=== PATIENT | female | born 1930 | race Two or more races ===

== ENCOUNTER 2016-08-22 16:28 | Inpatient (IN) | payer MEDICARE, MEDICAID ==
[~2016-08-22] VITALS: Ht 157.5 cm; Wt 71.2 kg
[~2016-08-22 16:28] MED LIST: ALBU0.633 IH; AMIN30LI2 PO; BISA-79 PO; CARV12.52 PO; CHOL20004 PO; DIFL5DRO OP; FERR1TAB44 PO; FOLI0.8T2 PO; HYDR-4076 PO; Losartan Potassium PO; NA P133E RC; POLY17PO4 PO; SEVE800T PO; WARF6TAB23 PO; [UNRECOGNIZED DRUG - CODE] SQ
[2016-08-22] MEDS ORDERED: MAGNESIUM HYDROXIDE 30 ML UDC PO PRN (19:30)
[2016-08-22] MEDS ORDERED: Z GUARD REMEDY 2 OZ OINT TP PRN (19:30)
[2016-08-22] MEDS ORDERED: ONDANSETRON HCL/PF 4 MG/2 ML VIAL IVP PRN (19:30)
[2016-08-22] MEDS ORDERED: BISACODYL (5 MG) 5 MG TABLET.DR PO PRN (19:30)
[2016-08-22] MEDS ORDERED: LACTULOSE 10 G/15 ML UDC (PYXIS) PO PRN (19:30)
[2016-08-22] MEDS ORDERED: ALBUTEROL SULFATE INH 18 GM HFA.AER.AD IH PRN (19:30)
[2016-08-22 20:00] VITALS: BP 162/84
[2016-08-22] MEDS ORDERED: ERGOCALCIFEROL (VITAMIN D 2) 50,000 UNIT CAPSULE PO SCH (20:00)
[2016-08-22 20:27] LABS: CALCIUM, SERUM 8.2 mg/dL (8.5-10.1); CREATININE 2.9 mg/dL (0.6-1.3); POTASSIUM 3.7 mmol/L (3.5-5.1)
[2016-08-22] MEDS: LOSARTAN POTASSIUM 50 MG TABLET PO SCH (21:00)
[2016-08-22] MEDS: HEPARIN SODIUM, PORCINE 5000 UNITS/1 ML VIAL SQ SCH (21:14)
[2016-08-22] MEDS: LACTULOSE UDC 200 G in SODIUM CHLORIDE IRRIG SOLUTION 400 ML IR SCH (21:27)
[2016-08-23] VITALS (9 sets, daily range): BP systolic 125–199; BP diastolic 66–88
[2016-08-23] MEDS: hydrALAZINE HCL IV 20 MG VIAL IV PRN ×2 (01:08→06:11)
[2016-08-23] MEDS: LACTULOSE UDC 200 G in SODIUM CHLORIDE IRRIG SOLUTION 400 ML IR SCH (02:05)
[2016-08-23] MEDS ORDERED: DEXTROSE 50%-WATER 50 ML DISP.SYRIN IV PRN (05:00)
[2016-08-23] MEDS ORDERED: LACTULOSE 10 G/15 ML UDC (PYXIS) ONE ×2 (05:37)
[2016-08-23] MEDS ORDERED: hydrALAZINE HCL IV 20 MG VIAL ONE (05:37)
[2016-08-23] MEDS: BLOOD SUGAR DIAGNOSTIC 1 EACH STRIP IN SCH ×3 (06:10→17:20)
[2016-08-23] MEDS: LACTULOSE 10 G/15 ML UDC (PYXIS) PO SCH ×3 (06:10→17:20)
[2016-08-23 07:28] LABS: BASOPHILS % (AUTO) 0.2 % (0.0-2.0); DIFF TOTAL % 100 %; EOSINOPHILS % (AUTO) 0.5 % (0.0-6.0); HEMATOCRIT 37 % (33-45); HEMOGLOBIN 12.3 g/dL (11.5-14.8); LYMPHOCYTES # (AUTO) 0.8 /CMM (0.8-4.8); LYMPHOCYTES % (AUTO) 13.9 % (20.0-44.0); MEAN CORPUSCULAR HEMOGLOBIN 32 PG (26.0-33.0); MEAN CORPUSCULAR HGB CONC 34 g/dl (31.0-36.0); MEAN CORPUSCULAR VOLUME 94 fL (82-100); MONOCYTES # (AUTO) 0.6 /CMM (0.1-1.30); MONOCYTES % (AUTO) 9.5 % (2.0-12.0); NEUTROPHILS # (AUTO) 4.6 /CMM (1.8-8.9); NEUTROPHILS % (AUTO) 75.9 % (43.0-81.0); PLATELET COUNT (AUTO) 98 /CMM (150-450); RED BLOOD CELL COUNT(AUTO) 3.91 MIL/uL (4.0-5.2); WHITE BLOOD COUNT (AUTO) 6.1 K/uL (4.3-11.0)
[2016-08-23 07:40] LABS: INR 1.84 (0.87-1.13)
[2016-08-23] MEDS: PANTOPRAZOLE 40 MG VIAL IV SCH (08:32)
[2016-08-23] MEDS: hydrALAZINE HCL 25 MG TABLET PO SCH ×3 (08:34→17:22)
[2016-08-23] MEDS: LOSARTAN POTASSIUM 50 MG TABLET PO SCH ×2 (08:34→21:37)
[2016-08-23] MEDS: CARVEDILOL 12.5 MG TABLET PO SCH ×2 (08:34→17:21)
[2016-08-23] MEDS: PROSOURCE / PROSTAT (PYXIS) 30 ML UDC PO SCH ×3 (08:35→17:21)
[2016-08-23] MEDS: VIT B CMPLX 3/FA/VIT C/BIOTIN 1 TAB TABLET PO SCH (08:35)
[2016-08-23] MEDS: FERROUS SULFATE (325 MG) 325 MG/TAB TABLET PO SCH ×3 (08:35→17:20)
[2016-08-23] MEDS: SEVELAMER CARBONATE 800 MG TABLET PO SCH ×3 (08:36→17:21)
[2016-08-23] MEDS: HEPARIN SODIUM, PORCINE 5000 UNITS/1 ML VIAL SQ SCH ×2 (08:36→21:00)
[2016-08-23] MEDS ORDERED: DIFLUPREDNATE EYE OP SCH (09:00)
[2016-08-23] MEDS ORDERED: NITROGLYCERIN 30 GM TUBE TOP PRN (10:00)
[2016-08-23 10:12] LABS: POTASSIUM 3.3 mmol/L (3.5-5.1)
[2016-08-23 10:13] LABS: CALCIUM, SERUM 8.6 mg/dL (8.5-10.1); CREATININE 3.5 mg/dL (0.6-1.3)
[2016-08-23 10:14] LABS: BILIRUBIN,TOTAL 0.8 mg/dL (0.2-1.0); PHOSPHORUS 3.6 mg/dL (2.5-4.9)
[2016-08-23 10:15] LABS: TOTAL PROTEIN, SERUM 6.6 g/dL (6.4-8.2)
[2016-08-23] MEDS: INSULIN REGULAR, HUMAN 100 UNIT/ML 3 ML VIAL SQ PRN ×2 (12:27→17:22)
[2016-08-23 13:27] LABS: BAND % (MANUAL) 1 % (0.0-5.0); EOSINOPHILS % (MANUAL) 4 % (0-4); LYMPHOCYTES % (MANUAL) 15 % (16-48)
[2016-08-23 13:28] LABS: PLATELET ESTIMATE DECREASED
[2016-08-23] MEDS: RIFAXIMIN 550 MG TABLET PO SCH (17:21)
[2016-08-24] VITALS (7 sets, daily range): BP systolic 153–192; BP diastolic 64–91
[2016-08-24] MEDS: LACTULOSE 10 G/15 ML UDC (PYXIS) PO SCH ×3 (01:44→17:14)
[2016-08-24] MEDS: BLOOD SUGAR DIAGNOSTIC 1 EACH STRIP IN SCH ×5 (05:55→23:44)
[2016-08-24] MEDS ORDERED: LACTULOSE 10 G/15 ML UDC (PYXIS) ONE (05:58)
[2016-08-24 07:19] LABS: BASOPHILS % (AUTO) 0.1 % (0.0-2.0); DIFF TOTAL % 100 %; EOSINOPHILS % (AUTO) 1.1 % (0.0-6.0); HEMATOCRIT 34 % (33-45); HEMOGLOBIN 11.3 g/dL (11.5-14.8); LYMPHOCYTES # (AUTO) 0.8 /CMM (0.8-4.8); LYMPHOCYTES % (AUTO) 21.2 % (20.0-44.0); MEAN CORPUSCULAR HEMOGLOBIN 32 PG (26.0-33.0); MEAN CORPUSCULAR HGB CONC 34 g/dl (31.0-36.0); MEAN CORPUSCULAR VOLUME 95 fL (82-100); MONOCYTES # (AUTO) 0.5 /CMM (0.1-1.30); NEUTROPHILS # (AUTO) 2.6 /CMM (1.8-8.9); NEUTROPHILS % (AUTO) 65.6 % (43.0-81.0); PLATELET COUNT (AUTO) 80 /CMM (150-450); RED BLOOD CELL COUNT(AUTO) 3.56 MIL/uL (4.0-5.2); WHITE BLOOD COUNT (AUTO) 3.9 K/uL (4.3-11.0)
[2016-08-24 07:20] LABS: INR 1.88 (0.87-1.13); PROTHROMBIN TIME 20.4 SECS (9.5-12.7)
[2016-08-24 07:57] LABS: ALBUMIN 2.9 g/dL (3.4-5.0); BILIRUBIN,TOTAL 0.6 mg/dL (0.2-1.0); CALCIUM, SERUM 8.2 mg/dL (8.5-10.1); CREATININE 4.2 mg/dL (0.6-1.3); POTASSIUM 3.2 mmol/L (3.5-5.1); TOTAL PROTEIN, SERUM 6.2 g/dL (6.4-8.2)
[2016-08-24] MEDS: PANTOPRAZOLE 40 MG VIAL IV SCH (08:31)
[2016-08-24] MEDS: RIFAXIMIN 550 MG TABLET PO SCH ×2 (08:31→17:14)
[2016-08-24] MEDS: PROSOURCE / PROSTAT (PYXIS) 30 ML UDC PO SCH ×3 (08:31→17:14)
[2016-08-24] MEDS: SEVELAMER CARBONATE 800 MG TABLET PO SCH ×3 (08:31→17:16)
[2016-08-24] MEDS: CARVEDILOL 12.5 MG TABLET PO SCH ×2 (08:32→17:16)
[2016-08-24] MEDS: hydrALAZINE HCL 25 MG TABLET PO SCH ×3 (08:32→17:16)
[2016-08-24] MEDS: FERROUS SULFATE (325 MG) 325 MG/TAB TABLET PO SCH ×3 (08:32→17:14)
[2016-08-24] MEDS: VIT B CMPLX 3/FA/VIT C/BIOTIN 1 TAB TABLET PO SCH (08:32)
[2016-08-24] MEDS: LOSARTAN POTASSIUM 50 MG TABLET PO SCH ×2 (08:32→21:45)
[2016-08-24] MEDS: HEPARIN SODIUM, PORCINE 5000 UNITS/1 ML VIAL SQ SCH (08:33)
[2016-08-24 09:25] LABS: BAND % (MANUAL) 2 % (0.0-5.0); LYMPHOCYTES % (MANUAL) 20 % (16-48)
[2016-08-24 09:26] LABS: PLATELET ESTIMATE DECREASED
[2016-08-24] MEDS ORDERED: POTASSIUM CHLORIDE 20 MEQ TAB.PRT.SR PO ONE (12:00)
[2016-08-24] MEDS ORDERED: POTASSIUM CHLORIDE 20 MEQ POWDER PACKET GT ONE (13:00)
[2016-08-24] MEDS ORDERED: hydrALAZINE HCL 25 MG TABLET PO SCH (15:30)
[2016-08-24 19:18] LABS: APPEARANCE,UNSPUN,BODY FLUID HAZY (CLEAR); COLOR,BODY FLUID YELLOW (LT YELLOW); RBC, BODY FLUID 13000 /cu. mm. (0-2000); WBC, BODY FLUID 220 /cu. mm. (0-200)
[2016-08-24 19:22] LABS: GLUCOSE,BODY FLUID 131 mg/dL; LDH, BODY FLUID 121 U/L; PROTEIN, BODY FLUID 2.8 G/DL
[2016-08-24 19:34] LABS: POLYNUCLEAR, BODY FLUID 20 % (0-25)
[2016-08-24] MEDS ORDERED: ACETAMINOPHEN 325 MG TABLET ONE (23:23)
[2016-08-24] MEDS ORDERED: hydrALAZINE HCL 50 MG TABLET ONE (23:23)
[2016-08-24] MEDS ORDERED: hydrALAZINE HCL 50 MG TABLET PO PRN (23:30)
[2016-08-24] MEDS: ACETAMINOPHEN 325 MG TABLET PO PRN (23:36)
[2016-08-24] MEDS: INSULIN REGULAR, HUMAN 100 UNIT/ML 3 ML VIAL SQ PRN (23:48)
[2016-08-25] VITALS (8 sets, daily range): BP systolic 126–189; BP diastolic 58–72
[2016-08-25] MEDS: LACTULOSE 10 G/15 ML UDC (PYXIS) PO SCH ×2 (05:02→17:11)
[2016-08-25] MEDS: BLOOD SUGAR DIAGNOSTIC 1 EACH STRIP IN SCH ×4 (06:09→23:22)
[2016-08-25] MEDS: INSULIN REGULAR, HUMAN 100 UNIT/ML 3 ML VIAL SQ PRN ×3 (06:10→23:24)
[2016-08-25] MEDS: hydrALAZINE HCL 25 MG TABLET PO SCH ×3 (08:37→17:13)
[2016-08-25] MEDS: VIT B CMPLX 3/FA/VIT C/BIOTIN 1 TAB TABLET PO SCH (08:37)
[2016-08-25] MEDS: FERROUS SULFATE (325 MG) 325 MG/TAB TABLET PO SCH ×3 (08:37→17:12)
[2016-08-25] MEDS: RIFAXIMIN 550 MG TABLET PO SCH ×2 (08:37→17:12)
[2016-08-25] MEDS: PANTOPRAZOLE 40 MG VIAL IV SCH (08:37)
[2016-08-25] MEDS: PROSOURCE / PROSTAT (PYXIS) 30 ML UDC PO SCH ×3 (08:37→17:11)
[2016-08-25] MEDS: SEVELAMER CARBONATE 800 MG TABLET PO SCH ×3 (08:37→17:12)
[2016-08-25] MEDS: CARVEDILOL 12.5 MG TABLET PO SCH ×2 (08:38→17:12)
[2016-08-25] MEDS: LOSARTAN POTASSIUM 50 MG TABLET PO SCH ×2 (08:38→20:56)
[2016-08-25] MEDS ORDERED: ERGOCALCIFEROL (VITAMIN D 2) 50,000 UNIT CAPSULE PO SCH (09:00)
[2016-08-25] MEDS: ACETAMINOPHEN 325 MG TABLET PO PRN (20:56)
[2016-08-26] VITALS: BP 139/59
== END 2016-08-26 04:41 | DRG 441 ==
LOC: TELE 18:38 → TELE-TD 08-23 01:05 → TELE1 08-23 10:22
PROVIDERS: ADMIT Internal Medicine; ATTEND Internal Medicine
PROC: 5A1D00Z (ICD-10-PCS; principal; 2016-08-24)
PROC: 0W993ZZ Drainage of Right Pleural Cavity, Percutaneous Approach (ICD-10-PCS; 2016-08-24)
DX: K72.00 Acute and subacute hepatic failure without coma (principal); N18.6 End stage renal disease; J96.00 Acute respiratory failure, unspecified whether with hypoxia or hypercapnia; I50.32 Chronic diastolic (congestive) heart failure; D61.818 Other pancytopenia; I13.2 Hypertensive heart and chronic kidney disease with heart failure and with stage 5 chronic kidney disease, or end stage renal disease; K74.60 Unspecified cirrhosis of liver; E11.22 Type 2 diabetes mellitus with diabetic chronic kidney disease; Z99.2 Dependence on renal dialysis; E78.5 Hyperlipidemia, unspecified; Z86.711 Personal history of pulmonary embolism; D63.8 Anemia in other chronic diseases classified elsewhere; E87.6 Hypokalemia
CPT/HCPCS: 36415; 71010-TC; 76700-TC; 76942-TC; 80048-TC; 80053-TC; 80061-TC; 82140-TC; 82962-TC; 83615-TC; 83735-TC; 84100-TC; 84484-TC; 85025-TC; 85610-TC; 87040-TC; 87070-TC; 87081-TC; 88305-TC; 88312-TC; 89051-TC; 90935-TC; 92521; 94799-TC; A4217; C9113; J0360; J1644; J1815

== ENCOUNTER 2017-05-10 06:07 | Inpatient (IN) | payer MEDICARE, MEDICAID ==
[2017-05-10] VITALS (11 sets, daily range): BP systolic 139–208; BP diastolic 45–86
[~2017-05-10] VITALS: Ht 167.6 cm; Wt 72.1 kg
--- NOTE | 2017-05-10 06:10 | NUR ---
PT ALTERED FROM [facility], PT WAS PLACED ON A NON REBREATHER DUTY OFFICER BY EMS, PER EMS PT HAS BEEN ALTERED X 15 HOURS, PT IS USUALY NON VERBAL BUT CAN NON HER HEAD YES OR NO, PT IS NOT RESPONDING TO QUESTIONS OR OPENING HER EYES AT THIS TIME, IV PLACED DUTY OFFICER, PT ON MONITOR, MD IN ROOM, PT IN GOWN, WILL CONTINUE TO MONITOR.
--- NOTE | 2017-05-10 06:24 | NUR ---
FLOOR RENOVATOR IN ROOM FOR EKG
--- NOTE | 2017-05-10 06:34 | NUR ---
LAB IN ROOM TO DRAW
--- NOTE | 2017-05-10 06:51 | NUR ---
IN AND OUT CATH DONE AND URINE SENT TO LAB
[2017-05-10 07:00] LABS: BASOPHILS % (AUTO) 0.3 % (0.0-2.0); EOSINOPHILS % (AUTO) 0.2 % (0.0-6.0); HEMATOCRIT 40 % (33-45); HEMOGLOBIN 13.5 g/dL (11.5-14.8); LYMPHOCYTES # (AUTO) 2.3 /CMM (0.8-4.8); LYMPHOCYTES % (AUTO) 12.7 % (20.0-44.0); MEAN CORPUSCULAR HEMOGLOBIN 33 PG (26.0-33.0); MEAN CORPUSCULAR HGB CONC 34 g/dl (31.0-36.0); MEAN CORPUSCULAR VOLUME 97 fL (82-100); MONOCYTES % (AUTO) 5.7 % (2.0-12.0); NEUTROPHILS # (AUTO) 14.5 /CMM (1.8-8.9); NEUTROPHILS % (AUTO) 81.1 % (43.0-81.0); PLATELET COUNT (AUTO) 125 /CMM (150-450); RDW COEFFICIENT OF VARIATION 13.4 (11.5-15.0); RED BLOOD CELL COUNT(AUTO) 4.15 MIL/uL (4.0-5.2); WHITE BLOOD COUNT (AUTO) 17.9 K/uL (4.3-11.0)
[2017-05-10 07:04] LABS: APPEARANCE,URINE CLOUDY (CLEAR); BILIRUBIN,URINE NEGATIVE (NEGATIVE); BLOOD, URINE TRACE-INTA Ery/uL (NEGATIVE); COLOR,URINE YELLOW (YELLOW); KETONES,URINE NEGATIVE (NEGATIVE); LEUKOCYTE ESTERASE ,URINE 3+ (NEGATIVE); NITRITE, URINE NEGATIVE (NEGATIVE); PROTEIN,URINE 2+ mg/dl (NEGATIVE); UGLUCOSE NEGATIVE (NEGATIVE); UROBILINOGEN,URINE 0.2 EU/dL (0.2)
[2017-05-10 07:07] LABS: ABG BASE EXCESS -1.3 mmol/L; ABG OXYGEN SATURATION 98.3 % (92.0-98.5); ABG PH 7.531 (7.350-7.450); ABG PO2 452.4 mmHg (75.0-100.0); AaDO2 92.8 mmHg; COHb 0.6 % (0.5-1.5); MetHb 0.3 % (0.0-1.5); O2Hb 97.4 % (94.0-97.0); SITE, ABG Right Radial; VENT MODE, BG NRB
[2017-05-10 07:08] LABS: BACTERIA,URINE 3+ /HPF (None Seen); MUCUS,URINE Few /LPF (None Seen); URINE AMORPHOUS URATE Few /HPF (None Seen); WBC,URINE 51-80 /HPF (0-3)
[2017-05-10 07:10] LABS: CARBON DIOXIDE 20 mmol/L (21-32); CHLORIDE 102 mmol/L (98-107); CREATININE 6.1 mg/dL (0.6-1.3); GLUCOSE 144 mg/dL (74-106); POTASSIUM 4.6 mmol/L (3.5-5.1); SODIUM SERUM 138 mmol/L (136-145); UREA NITROGEN, BLOOD 47 mg/dL (7-18)
[2017-05-10 07:15] LABS: INR 1.05 (0.87-1.13); PROTHROMBIN TIME 10.9 SECS (9.5-12.7)
[2017-05-10 07:18] LABS: TROPONIN I 0.022 ng/mL (0.00-0.056)
[2017-05-10 07:25] LABS: ALANINE AMINOTRANSFERASE 23 U/L (12-78); ALBUMIN 3.4 g/dL (3.4-5.0); ALKALINE PHOSPHATASE 72 U/L (46-116); ASPARTATE AMINOTRANSFERASE 33 U/L (15-37); BILIRUBIN,DIRECT 0.3 mg/dL (0.0-0.2); BILIRUBIN,TOTAL 1.2 mg/dL (0.2-1.0); TOTAL PROTEIN, SERUM 7.3 g/dL (6.4-8.2)
[2017-05-10] MEDS ORDERED: LOSA50TA21 PO (07:40)
[2017-05-10] MEDS ORDERED: INSU100V11 SQ (07:40)
[2017-05-10] MEDS ORDERED: DIPH25CA6 PO (07:40)
[2017-05-10] MEDS ORDERED: MAG30ORA PO (07:40)
[2017-05-10] MEDS ORDERED: ACET-868 PO (07:40)
[2017-05-10] MEDS ORDERED: VITA1TAB56 PO (07:40)
[2017-05-10] MEDS ORDERED: ALBU18HF2 IH (07:40)
[2017-05-10] MEDS ORDERED: INSU100V7 SQ (07:40)
[2017-05-10] MEDS ORDERED: BISA10SU8 RC (07:40)
[2017-05-10] MEDS ORDERED: NA P133E RC (07:40)
[2017-05-10] MEDS ORDERED: MAGN400O6 PO (07:40)
[2017-05-10] MEDS ORDERED: HYDR-552 PO (07:40)
[2017-05-10] MEDS ORDERED: CARV6.252 PO (07:40)
[2017-05-10] MEDS ORDERED: DEXA4TAB PO (07:40)
[2017-05-10] MEDS ORDERED: NIFE30TA91 PO (07:40)
[2017-05-10] MEDS ORDERED: BLOO-668 IN (07:40)
[2017-05-10] MEDS ORDERED: PANT40TA2 PO (07:40)
[2017-05-10] MEDS ORDERED: LEVE250T2 PO (07:40)
[2017-05-10] MEDS ORDERED: ATOR40TA PO (07:40)
[2017-05-10] MEDS ORDERED: CEFTRIAXONE 1GM BAG (ER ONLY) 50 ML IV ONE ×2 (08:23→08:30)
[2017-05-10] MEDS ORDERED: IV NS 0.9% 1,000 ML BAG IV ONE (08:30)
[2017-05-10] MEDS ORDERED: ENALAPRILAT DIHYD. (2.5MG/ML) 1.25 MG/ML VIAL IV ONE (08:46)
--- NOTE | 2017-05-10 08:46 | NUR ---
Report called to RASHMI Carias for continuity of care
[2017-05-10] MEDS ORDERED: MAGNESIUM HYDROXIDE 30 ML UDC PO PRN (09:00)
[2017-05-10] MEDS ORDERED: ENOXAPARIN SODIUM 40 MG/0.4 ML DISP.SYRIN SQ SCH (09:00)
[2017-05-10] MEDS ORDERED: VANCOMYCIN 1.25 GM in IV D5W 500 ML IV SCH (09:00)
[2017-05-10] MEDS: CARVEDILOL 6.25 MG TABLET PO SCH ×2 (09:00→17:48)
[2017-05-10] MEDS ORDERED: ONDANSETRON HCL/PF 4 MG/2 ML VIAL IVP PRN (09:00)
[2017-05-10] MEDS: NIFEdipine XL (30MG) 30 MG TAB PO SCH ×2 (09:00→20:39)
[2017-05-10] MEDS ORDERED: Z GUARD REMEDY 2 OZ OINT TP PRN (09:00)
[2017-05-10] MEDS ORDERED: ALBUTEROL FS 2.5 MG/3 ML VIAL.NEB NEB PRN (09:00)
[2017-05-10] MEDS ORDERED: IV NS 0.9% 1,000 ML IV PRN (09:00)
[2017-05-10] MEDS ORDERED: MAG HYDROX/AL HYDROX/SIMETH 30 ML UDC PO PRN (09:00)
[2017-05-10] MEDS ORDERED: PIPERACILLIN /TAZOBACTAM 4.5 G in IV D5W 50 ML IV SCH (09:00)
[2017-05-10] MEDS ORDERED: ALBUTEROL SULFATE 8 GM HFA.AER.AD IH PRN (09:00)
[2017-05-10] MEDS ORDERED: BISACODYL SUPP (10 MG) 10 MG/SUPP.RECT SUPP.RECT RC PRN (09:00)
--- NOTE | 2017-05-10 09:00 | NUR ---
RN NOTES RECEIVED PATIENT FROM ER ,ADMITTED WITH DIAGNOSIS OF AMS , RESPONSIVE TO PAIN STIMULI , SPO2 OF 98% VIA SIMPLE MASK @ 6LPM , DEEP RESPIRATIONS NOTED WITH RALES UPON AUSCULTATION , SR 85 ON TELE MONITOR , SKIN ASSESSMENT DONE NOTED WITH SACRAL AND BILATERAL INGUINAL REDNESS , TOOK A PICTURE AND PLACED IN THE CHART , IV OF L HAND # 20 PATENT AND INTACT WITH ONGOING NS BOLUS , R CHEST WALL HD CATH C/D/I , ALL NEEDS ATTENDED , BED ON LOW AND LOCKED POSITION ,SIDE RAILS X2 ,CALL LIGHT WITHIN REACH , HOB @ 35 , ADMISSION ORDERS CARRIED OUT , WILL CONTINUE TO MONITOR
[2017-05-10] MEDS ORDERED: FEE PK DOSING 1 MIN EA MC ONE (09:24)
[2017-05-10] MEDS: hydrALAZINE HCL IV 20 MG VIAL IV PRN ×2 (09:37→17:47)
[2017-05-10] MEDS: PIPERACILLIN /TAZOBACTAM 2.25 G in IV D5W 50 ML IV SCH ×2 (10:12→17:48)
[2017-05-10] MEDS: LEVETIRACETAM (500MG) 500 MG in IV NS 0.9% 100 ML IV SCH ×2 (10:13→20:39)
[2017-05-10] MEDS: HEPARIN SODIUM, PORCINE 5000 UNITS/1 ML VIAL SQ SCH ×2 (10:23→20:40)
[2017-05-10] MEDS ORDERED: VANCOMYCIN 1.25 GM in IV D5W 500 ML IV ONE (11:00)
--- NOTE | 2017-05-10 11:35 | NUR ---
RN NOTES SPOKE WITH DR SYKES , DISCUSSED LABS , PT STILL ALTERED RESPONSIVE TO PAIN STIMULI , NOTED WITH CONGESTION , RALES UPON AUSCULTATION ON BOTH LUNG [place] , DEEP SUCTION PT NOTED WITH WHITE THICK SECRETION , VERIFIED IF SHE WANTS TO ADD BREATHING TX , PER MD ORDER ALBUTEROL PRN , BP OF 170'S , PER MD GIVE HYDRALAZINE 10MG X1 IVP AND PUT NGT FOR MEDICATIONS , ORDERS CARRIED OUT
[2017-05-10] MEDS ORDERED: ALBUTEROL FS 2.5 MG/0.5 ML VIAL.NEB NEB PRN (12:00)
[2017-05-10] MEDS ORDERED: hydrALAZINE HCL IV 20 MG VIAL IV ONE (12:00)
[2017-05-10] MEDS ORDERED: SEVELAMER CARBONATE 800 MG TABLET PO SCH (13:00)
--- NOTE | 2017-05-10 13:54 | NUR ---
RN NOTES PT STABLE PRIOR TO HD , BP OF 153/85 , AFEBRILE , SPO2 OF 98% VIA 6LPM MASK , STILL ALTERED MENTAL STATUS RESPONSIVE TO PAIN STIMULI , WILL CONTINUE TO MONITOR
--- NOTE | 2017-05-10 15:48 | NUR ---
RN NOTES PT STILL WITH AMS S/P HD , 2.5 L OUT TOLERATED WELL , BP OF 136/77 , HR 82 , ON 6LPM MASK SPO2 OF 98 , WILL CONTINUE TO MONITOR
--- NOTE | 2017-05-10 16:07 | NUR ---
RN NOTES NOTIFIED DR SYKES THAT PT STILL WITH AMS S/P HD , BS OF 164 , DISCUSSED BASELINE ABG , ASKED IF SHE WANTS TO DO ANOTHER ABG , PER MD NO ABG , PT NOTED WITH CONGESTION , PER MD OK TO DEEP SUCTIONING , AND ORDER PULMO CONSULT .
--- NOTE | 2017-05-10 16:18 | NUR ---
RN NOTES CALLED PHARMACY , SPOKE WITH NASIR , NOTIFIED THAT VANCOMYCIN DOSE WAS GIVEN SCHEDULED PRIOR TO HD , PER NASIR HOLD THE DOSE OF VANCOMYCIN POST HD
[2017-05-10] MEDS ORDERED: DEXTROSE 50%-WATER 50 ML DISP.SYRIN IV PRN (16:30)
[2017-05-10] MEDS: SEVELAMER CARBONATE 0.8 GM POWD.PACK GT SCH (17:47)
[2017-05-10] MEDS: BLOOD SUGAR DIAGNOSTIC 1 EACH STRIP IN SCH ×2 (17:54→23:43)
[2017-05-10] MEDS: INSULIN REGULAR, HUMAN 100 UNIT/ML 3 ML VIAL SQ PRN (18:00)
[2017-05-10] MEDS: IV NS 0.9% 1,000 ML IV PRN (18:10)
--- NOTE | 2017-05-10 19:01 | NUR ---
RN NOTES PATIENT STABLE AT THIS TIME STILL WITH AMS RESPONSIVE TO PAIN STIMULI , SPO2 OF 98% VIA SIMPLE MASK @ 6LPM , , SR 75 ON TELE MONITOR , IV OF L HAND # 20 PATENT AND INTACT , R HAND # 20 WITH ONGOING NS @ 40ML/HR , R CHEST WALL HD CATH C/D/I , ALL NEEDS ATTENDED , BED ON LOW AND LOCKED POSITION ,SIDE RAILS X2 ,CALL LIGHT WITHIN REACH , HOB @ 35 , REPROT GIVEN TO SUJIT CARABALLO FOR CONTINUITY OF CARE
--- NOTE | 2017-05-10 20:29 | NUR ---
received pt from day shift, altered, lethargic, responds to pain stimuli only MD aware, SR, on 6L simple mask, sat well, lungs congested, no edema, able to suction some secretions, respiratory notified, NPO, anuric, HD pt, HD done today, v/s stable, no pain, pt turned and repositioned.
[2017-05-10] MEDS: ATORVASTATIN 40 MG TABLET PO SCH (21:02)
[2017-05-11] VITALS: BP 147/72
[2017-05-11] MEDS: PIPERACILLIN /TAZOBACTAM 2.25 G in IV D5W 50 ML IV SCH ×3 (01:10→17:24)
[2017-05-11 04:00] VITALS: BP 168/80
[2017-05-11] MEDS: BLOOD SUGAR DIAGNOSTIC 1 EACH STRIP IN SCH ×3 (06:00→17:24)
--- NOTE | 2017-05-11 07:30 | NUR ---
INSURANCE COMPLIANCE ANALYST RECEIVED PATIENT ASLEEP, BASELINE ORIENTATION IS LETHARGIC RIGHT NOW, UNABLE TO CHECK HER ORIENTATION MOVES TO PAIN PLACED ON 6 LITERS SIMPLE MASK MOANS WHEN MOVES SEEN AND EXAMINED BY WOUND CARE NURSE WITH NEW ORDERS MADE AND CARRIED OUT BLOOD SUGAR FOR 0600 GIVEN BY NEWSPERSON NURSE
[2017-05-11 08:00] VITALS: BP 147/62
[2017-05-11] MEDS: CARVEDILOL 6.25 MG TABLET PO SCH ×2 (09:49→17:25)
[2017-05-11] MEDS: NIFEdipine XL (30MG) 30 MG TAB PO SCH ×2 (09:49→20:58)
[2017-05-11] MEDS: SEVELAMER CARBONATE 0.8 GM POWD.PACK GT SCH ×3 (09:49→17:24)
[2017-05-11] MEDS: HEPARIN SODIUM, PORCINE 5000 UNITS/1 ML VIAL SQ SCH ×2 (09:50→21:00)
[2017-05-11 10:34] LABS: CHOLESTEROL 140 mg/dL (<200); HDL CHOLESTEROL 66 mg/dL (40-60); LDL 52 mg/dL (0-99); TRIGLYCERIDES 80 mg/dL (30-150)
[2017-05-11 10:35] LABS: CALCIUM, SERUM 8.5 mg/dL (8.5-10.1); CARBON DIOXIDE 21 mmol/L (21-32); CHLORIDE 101 mmol/L (98-107); CREATININE 4.9 mg/dL (0.6-1.3); GLUCOSE 152 mg/dL (74-106); MAGNESIUM 1.9 mg/dL (1.8-2.4); PHOSPHORUS 3.5 mg/dL (2.5-4.9); POTASSIUM 4.1 mmol/L (3.5-5.1); SODIUM SERUM 137 mmol/L (136-145); UREA NITROGEN, BLOOD 40 mg/dL (7-18); VANCOMYCIN,RANDOM 15 ug/ml (18-26)
[2017-05-11] MEDS: LEVETIRACETAM (500MG) 500 MG in IV NS 0.9% 100 ML IV SCH ×2 (10:51→21:33)
[2017-05-11 11:29] LABS: BASOPHILS % (AUTO) 0.1 % (0.0-2.0); EOSINOPHILS % (AUTO) 0.2 % (0.0-6.0); HEMATOCRIT 38 % (33-45); HEMOGLOBIN 12.6 g/dL (11.5-14.8); LYMPHOCYTES # (AUTO) 1.3 /CMM (0.8-4.8); LYMPHOCYTES % (AUTO) 11.3 % (20.0-44.0); MEAN CORPUSCULAR HEMOGLOBIN 32 PG (26.0-33.0); MEAN CORPUSCULAR HGB CONC 33 g/dl (31.0-36.0); MEAN CORPUSCULAR VOLUME 97 fL (82-100); MONOCYTES # (AUTO) 0.7 /CMM (0.1-1.30); MONOCYTES % (AUTO) 5.6 % (2.0-12.0); NEUTROPHILS # (AUTO) 9.9 /CMM (1.8-8.9); NEUTROPHILS % (AUTO) 82.8 % (43.0-81.0); PLATELET COUNT (AUTO) 93 /CMM (150-450); RDW COEFFICIENT OF VARIATION 13.3 (11.5-15.0); RED BLOOD CELL COUNT(AUTO) 3.91 MIL/uL (4.0-5.2); WHITE BLOOD COUNT (AUTO) 11.9 K/uL (4.3-11.0)
[2017-05-11 12:00] VITALS: BP 127/63
[2017-05-11] MEDS: INSULIN REGULAR, HUMAN 100 UNIT/ML 3 ML VIAL SQ PRN (12:45)
[2017-05-11 13:14] LABS: BAND % (MANUAL) 1 % (0.0-5.0); LYMPHOCYTES % (MANUAL) 11 % (16-48); MONOCYTES % (MANUAL) 2 % (0-11.0); NEUTROPHILS % (MANUAL) 86 (42-76)
--- NOTE | 2017-05-11 15:50 | NUR ---
POULTRY FARMWORKER GAVE REPORT TO BRIAN CARABALLO ENDORSED TO NOD
[2017-05-11 16:00] VITALS: BP 168/80
[2017-05-11] MEDS: CLOTRIMAZOLE 1% 15 GM TUBE TP SCH (17:25)
[2017-05-11] MEDS: Z GUARD REMEDY 2 OZ OINT TP SCH (17:25)
[2017-05-11] MEDS: ACETAMINOPHEN 325 MG TABLET PO PRN (17:41)
[2017-05-11] MEDS: VANCOMYCIN 500 MG in IV D5W 100 ML IV PRN (18:51)
[2017-05-11 20:00] VITALS: BP 150/69
--- NOTE | 2017-05-11 20:00 | NUR ---
dylan rn notes received pts on bed awake and responsive , on tele sr on the monitor. sating 99% pts on 6liters of 02 via mask, temp of 100.9 cooling measures and sponge bath given , no sob no distress noted no facial grimaces noted.with left and right hand both g#20 intact and patent , pts is on ivf of ns at 40cc/hr well tolerated , pts also with ngt intact and patent placement checked ,all needs attended too call light within reach all due meds given as ordered , hob elevated for aspiration precaution , turned and reposition q 2hrs and prn .kept pts clean dry and comfortable, will continue to monitor pts.
--- NOTE | 2017-05-11 20:34 | NUR ---
Patient resides at [facility] [phone],primary language is Hebrew. She is bedbound, totally dependent with adl's. She gets hemodialysis at [facility] [phone] every TTHS. She will need ambulance for transportation back to [facility] when discharge. Addendum: 05/11/17 at 2033 by MARY JEFFERS RN Amended: Links added.
[2017-05-11] MEDS: MEROPENEM 500 MG in IV NS 0.9% 50 ML IV SCH (20:56)
--- NOTE | 2017-05-11 21:00 | NUR ---
dylan rn notes recheck temperature t-98.8 will continue to monitor .
[2017-05-11] MEDS: ATORVASTATIN 40 MG TABLET PO SCH (21:01)
[2017-05-11] MEDS: IV NS 0.9% 1,000 ML IV PRN (21:33)
[2017-05-12] VITALS: BP 178/81
--- NOTE | 2017-05-12 | NUR ---
KAMRON RN NOTES PTS ON BED AWAKE AND RESPONSIVE , BLOOD SUGAR FOR 12MN IS 160 MG/DL - 2 UNITS OG REGULAR INSULIN GIVEN PER SLIDING SCALE PTS REMAINS ON NS AT 40CC/HR WELL TOLERATED. BLOOD PRESSURE OF 178/81 - HYDRALAZINE 10MG IVP GIVEN ORDERED WILL CONTINUE TO MONITOR PTS .
[2017-05-12] MEDS: hydrALAZINE HCL IV 20 MG VIAL IV PRN ×2 (00:01→05:36)
[2017-05-12] MEDS: INSULIN REGULAR, HUMAN 100 UNIT/ML 3 ML VIAL SQ PRN ×3 (00:06→12:49)
[2017-05-12] MEDS: BLOOD SUGAR DIAGNOSTIC 1 EACH STRIP IN SCH ×5 (00:06→23:26)
--- NOTE | 2017-05-12 00:30 | NUR ---
dylan rn notes blood pressure recheck 157/70
[2017-05-12 04:00] VITALS: BP 165/81
--- NOTE | 2017-05-12 05:15 | NUR ---
dylan staley notes bp rechecked 155/78 Addendum: 05/12/17 at 0657 by DELMY ARELLANO RN dylan staley notes time rechecked the blood pressure post hydralazine is 6am bp is 155/78.
--- NOTE | 2017-05-12 05:40 | NUR ---
dylan rn notes hydralazine 10 mg ivp given as ordered prn for bp 165/81
--- NOTE | 2017-05-12 06:00 | NUR ---
dylan rn notes blood sugar for 6am is 130mg/dl -no insulin coverage given per sliding scale , pts remains on 02 at 6litres via mask sating 99-100% no significance change noted at this time.will endorse to rn day shift for continuity of care.
--- NOTE | 2017-05-12 07:40 | NUR ---
RN KAMRON: pt.is obtunded, unable to follow commands, no grimacing, O2 sat. over 94%, SR, SBP over 100 below 160, will s/w re IVF, NPO continue?
[2017-05-12 08:00] VITALS: BP 150/70
[2017-05-12] MEDS: SEVELAMER CARBONATE 0.8 GM POWD.PACK GT SCH ×3 (08:05→17:20)
[2017-05-12] MEDS: HEPARIN SODIUM, PORCINE 5000 UNITS/1 ML VIAL SQ SCH ×2 (08:29→21:19)
[2017-05-12] MEDS: NIFEdipine XL (30MG) 30 MG TAB PO SCH ×2 (08:31→21:16)
[2017-05-12] MEDS: CARVEDILOL 6.25 MG TABLET PO SCH ×2 (08:32→16:10)
[2017-05-12] MEDS: MEROPENEM 500 MG in IV NS 0.9% 50 ML IV SCH ×2 (08:33→21:18)
[2017-05-12] MEDS: Z GUARD REMEDY 2 OZ OINT TP SCH ×2 (08:33→17:10)
[2017-05-12] MEDS: CLOTRIMAZOLE 1% 15 GM TUBE TP SCH ×2 (08:34→17:10)
[2017-05-12] MEDS: LEVETIRACETAM (500MG) 500 MG in IV NS 0.9% 100 ML IV SCH (09:33)
[2017-05-12 12:00] VITALS: BP 136/63
[2017-05-12 13:27] LABS: BASOPHILS % (AUTO) 0.3 % (0.0-2.0); EOSINOPHILS # (AUTO) 0.1 /CMM (0.0-0.7); EOSINOPHILS % (AUTO) 0.9 % (0.0-6.0); HEMATOCRIT 31 % (33-45); HEMOGLOBIN 10.4 g/dL (11.5-14.8); LYMPHOCYTES # (AUTO) 1.2 /CMM (0.8-4.8); LYMPHOCYTES % (AUTO) 12.7 % (20.0-44.0); MEAN CORPUSCULAR HEMOGLOBIN 33 PG (26.0-33.0); MEAN CORPUSCULAR HGB CONC 34 g/dl (31.0-36.0); MEAN CORPUSCULAR VOLUME 97 fL (82-100); MONOCYTES # (AUTO) 0.7 /CMM (0.1-1.30); NEUTROPHILS # (AUTO) 7.2 /CMM (1.8-8.9); NEUTROPHILS % (AUTO) 78.1 % (43.0-81.0); PLATELET COUNT (AUTO) 75 /CMM (150-450); RDW COEFFICIENT OF VARIATION 12.9 (11.5-15.0); RED BLOOD CELL COUNT(AUTO) 3.17 MIL/uL (4.0-5.2); WHITE BLOOD COUNT (AUTO) 9.2 K/uL (4.3-11.0)
[2017-05-12 13:32] LABS: CALCIUM, SERUM 7.7 mg/dL (8.5-10.1); CARBON DIOXIDE 22 mmol/L (21-32); CHLORIDE 102 mmol/L (98-107); GLUCOSE 141 mg/dL (74-106); MAGNESIUM 1.8 mg/dL (1.8-2.4); POTASSIUM 3.6 mmol/L (3.5-5.1); SODIUM SERUM 135 mmol/L (136-145); UREA NITROGEN, BLOOD 54 mg/dL (7-18)
--- NOTE | 2017-05-12 15:30 | NUR ---
RN KAMRON: YOLANDA Saez is in room, updated with pt.current condition, VS, I/O, IVF, NPO, labs, BS, meds, US result, pt.is obtunded, unable to follow commands, no current information from family re pt.prev.baseline status/aspiration risk?, HD was done on 05/11, see new orders
[2017-05-12 16:00] VITALS: BP 149/66
[2017-05-12 16:58] LABS: ALBUMIN 2.6 g/dL (3.4-5.0); BILIRUBIN,DIRECT 0.3 mg/dL (0.0-0.2); BILIRUBIN,TOTAL 0.9 mg/dL (0.2-1.0); TOTAL PROTEIN, SERUM 5.8 g/dL (6.4-8.2)
[2017-05-12] MEDS: LACTULOSE 10 G/15 ML UDC (PYXIS) PO SCH (17:33)
--- NOTE | 2017-05-12 19:15 | NUR ---
RN INITIAL NOTES RECEIVED PATIENT IN BED, SLEEPING COMFORTABLY, PATIENT IS AROUSABLE TO VERBAL AND TACTILE STIMULI, ABLE TO OPEN EYES WITH TRACKING NOTED. NO ACUTE DISTRESS OR DISCOMFORT OBSERVED. SR ON TELE WITH HR 83. ON 6LPM OF O2 VIA MASK. WITH R NGT, FLUSHED AND PATENT, NPO EXCEPT MEDS. R CHEST WALL HD ACCESS WITH DRESSING INTACT. L HAND AND R HAND G20, FLUSHED AND KEPT PATENT, NO SIGNS OF INFILTRATION, IVF RUNNING ORDERED. PATIENT REPOSITIONED FOR COMFORT. NEEDS ANTICIPATED AND MET. SAFETY AND COMFORT ENSURED. BED IN LOW AND LOCKED POSITION. WILL MONITOR CLOSELY.
[2017-05-12 20:00] VITALS: BP 140/82
[2017-05-12] MEDS: IV NS 0.9% 1,000 ML IV PRN (21:16)
[2017-05-12] MEDS: LEVETIRACETAM SOL (5 ML) 100 MG/ML UDC GT SCH (21:17)
[2017-05-12] MEDS: ATORVASTATIN 40 MG TABLET PO SCH (21:17)
--- NOTE | 2017-05-12 23:39 | NUR ---
RN NOTES PATIENT OBSERVED TO BE CONSTANTLY MOANING, UNABLE TO VERBALIZE NEEDS, BASELINE MENTATION IS STILL UNKNOWN AND NOT CLARIFIED WITH FAMILY. PATIENT'S NEEDS ANTICIPATED AND MET AT THIS TIME. SAFETY AND COMFORT ENSURED. PATIENT MANAGED TO CALM DOWN AND QUIET DOWN, WILL CONT TO MONITOR. BS CHECKED AND NOTED TO BE 122, NO INSULIN GIVEN PER SLIDING SCALE, IVF ORDERED.
[2017-05-13] VITALS: BP 133/84
[2017-05-13 04:00] VITALS: BP 164/71
[2017-05-13] MEDS: BLOOD SUGAR DIAGNOSTIC 1 EACH STRIP IN SCH ×3 (05:25→17:21)
[2017-05-13] MEDS: INSULIN REGULAR, HUMAN 100 UNIT/ML 3 ML VIAL SQ PRN (05:27)
--- NOTE | 2017-05-13 05:27 | NUR ---
RN NOTES SG=[id number]. PATIENT IS ON NPO. IVF OF NS AT 40CC/HR, WILL MONITOR. NO INSULIN GIVEN PER SLIDING SCALE AT THIS TIME. WILL MONITOR AND ENDORSE ACCORDINGLY.
[2017-05-13 06:31] LABS: BASOPHILS % (AUTO) 0.4 % (0.0-2.0); EOSINOPHILS # (AUTO) 0.1 /CMM (0.0-0.7); EOSINOPHILS % (AUTO) 1.9 % (0.0-6.0); HEMATOCRIT 30 % (33-45); HEMOGLOBIN 10.3 g/dL (11.5-14.8); LYMPHOCYTES # (AUTO) 0.8 /CMM (0.8-4.8); LYMPHOCYTES % (AUTO) 15.3 % (20.0-44.0); MEAN CORPUSCULAR HEMOGLOBIN 33 PG (26.0-33.0); MEAN CORPUSCULAR HGB CONC 34 g/dl (31.0-36.0); MEAN CORPUSCULAR VOLUME 97 fL (82-100); MONOCYTES # (AUTO) 0.5 /CMM (0.1-1.30); MONOCYTES % (AUTO) 8.9 % (2.0-12.0); NEUTROPHILS # (AUTO) 4.1 /CMM (1.8-8.9); NEUTROPHILS % (AUTO) 73.5 % (43.0-81.0); PLATELET COUNT (AUTO) 65 /CMM (150-450); RDW COEFFICIENT OF VARIATION 12.7 (11.5-15.0); RED BLOOD CELL COUNT(AUTO) 3.13 MIL/uL (4.0-5.2); WHITE BLOOD COUNT (AUTO) 5.5 K/uL (4.3-11.0)
[2017-05-13 06:36] LABS: SERUM AMMONIA 36 umol/L (11-32)
--- NOTE | 2017-05-13 06:50 | NUR ---
RN CLOSING NOTES PATIENT WITH NO ACUTE DISTRESS AND CHANGE IN CONDITION OBSERVED OVERNIGHT. ABLE TO WITHDRAW AND NOTED TO MOAN WITH PAINFUL STIMULI. ON SIMPLE MASK VIA 6LPM, NO DISTRESS. SR WITH OCCASIONAL PVCs AT 80s. REMAINS NPO EXCEPT MEDS, R NGT REMAINS INTACT AND PATENT. IVF ORDERED. SAFETY AND COMFORT ENSURED. BED IN LOW AND LOCKED POSITION. WILL ENDORSE ACCORDINGLY FOR CONTINUITY OF CARE.
[2017-05-13 07:01] LABS: CALCIUM, SERUM 8.3 mg/dL (8.5-10.1); CARBON DIOXIDE 21 mmol/L (21-32); CHLORIDE 105 mmol/L (98-107); CREATININE 5.4 mg/dL (0.6-1.3); GLUCOSE 138 mg/dL (74-106); PHOSPHORUS 4.8 mg/dL (2.5-4.9); SODIUM SERUM 139 mmol/L (136-145); UREA NITROGEN, BLOOD 63 mg/dL (7-18)
[2017-05-13 08:00] VITALS: BP_SYST 147; BP_SYST 170; BP_DIAS 76; BP_DIAS 81
--- NOTE | 2017-05-13 08:00 | NUR ---
FUSELAGE FRAMER NOTES, PATIENT ON BED MOANS FREQUENTLY , ON TELEMONITOR SR, PATIENT STARTED ON HD PER PATIENT ORDER, ON 6L VIA SIMPLE MAS AT 100%, PATIENT NGT PLACEMENT CHECKED AND VERIFY BEFORE THE ADMINISTRATION OF MEDICATIONS, NO RESIDUAL AT THIS TIME, BED LOCKED AND LOWEST POSITION, NPO STATUS, PT WITH RIGHT HAND HEPLOCK NO S/S OS INFILTRATION OR ABNORMALITY NOTED, ON NS AT 40ML/HR, HOB AT ALL TIMES, CALL LIGHT W/N REACH, WILL CONTINUE TO MONITOR CLOSELY.
[2017-05-13] MEDS: CARVEDILOL 6.25 MG TABLET PO SCH ×2 (09:00→17:00)
[2017-05-13] MEDS: NIFEdipine XL (30MG) 30 MG TAB PO SCH ×2 (09:00→21:14)
--- NOTE | 2017-05-13 09:00 | NUR ---
PARTS PROCESSOR NOTE HOLD BP MEDS PATIENT WILL HAVE HD
[2017-05-13] MEDS: MEROPENEM 500 MG in IV NS 0.9% 50 ML IV SCH ×2 (09:27→21:16)
[2017-05-13] MEDS: HEPARIN SODIUM, PORCINE 5000 UNITS/1 ML VIAL SQ SCH ×2 (09:28→21:36)
[2017-05-13] MEDS: LEVETIRACETAM SOL (5 ML) 100 MG/ML UDC GT SCH ×2 (09:28→21:14)
[2017-05-13] MEDS: SEVELAMER CARBONATE 0.8 GM POWD.PACK GT SCH ×3 (09:28→17:18)
[2017-05-13] MEDS: LACTULOSE 10 G/15 ML UDC (PYXIS) PO SCH ×3 (09:28→17:18)
[2017-05-13] MEDS: Z GUARD REMEDY 2 OZ OINT TP SCH ×2 (09:30→17:21)
[2017-05-13] MEDS: CLOTRIMAZOLE 1% 15 GM TUBE TP SCH ×2 (09:30→17:18)
[2017-05-13] MEDS: ACETAMINOPHEN 325 MG TABLET PO PRN (09:39)
--- NOTE | 2017-05-13 10:00 | NUR ---
COUNSELOR EDUCATION PROFESSOR NOTES, TYLENOL GIVEN FOR COMFORT MEASURES PATIENT MOANS FREQUENTLY, RT CALLED PLACE ON 2L N/C AT 98%, WILL CONTINUE TO MONITOR CLOSELY, HD FINISHED AT THIS TIME, 2L OF FLUIDS REMOVED AND LATEST BP 140/80
--- NOTE | 2017-05-13 11:42 | NUR ---
AWAKE OVERNIGHT MONITOR NOTES, SPOKE WITH DR SYKES UPDATED PT CONDITION, OK TO TO START NOVASOURCE AT 30ML/HR VIA NGT AND DIETARY CONSULT, SATED THAT WILL ORDER NEURO CONSULT WITH DR ROBLERO
[2017-05-13 12:00] VITALS: BP 137/67
[2017-05-13] MEDS ORDERED: RENAL NOVASOURCE 1,000 ML BOTTLE GT PRN (12:00)
--- NOTE | 2017-05-13 13:41 | NUR ---
[facility] GEOLOGY FACULTY MEMBER NOTE SPOKE WITH CARRIE HENRY KARMA TOMÁS TELEPHONE CONSENT FOR MRI DONE
[2017-05-13 16:00] VITALS: BP 98/79
[2017-05-13] MEDS: VANCOMYCIN 500 MG in IV D5W 100 ML IV PRN (16:55)
--- NOTE | 2017-05-13 17:53 | NUR ---
TOOTH CLERK NOTE NEW N GUBE INSERTED CONT ON N GTUBE FEEDING ORDERED , NO RESIDUAL NOTED AT THSF TIME , IVF WAS STOPPED ORDERED ,WILL CONT TO MONITOR CLOSELY , MOUTH CARE DONE
--- NOTE | 2017-05-13 18:05 | NUR ---
PICKLE WATER PUMP OPERATOR NOTES, VANCO LEVEL IS 15, VANCOMYCIN ADMINISTERED AFTER HD, NOVASOURCE AT 30ML/HR ORDERED, NO S/S OF ANY ACUTE DISTRESS OR SOB, KEPT DRY AND CLEAN AT ALL TIMES, WILL CONTINUE TO MONITOR CLOSELY.
--- NOTE | 2017-05-13 19:15 | NUR ---
RN INITIAL NOTES RECEIVED PATIENT IN BED, SLEEPING COMFORTABLY, PATIENT IS AROUSABLE TO VERBAL AND TACTILE STIMULI, ABLE TO OPEN EYES WITH TRACKING NOTED. NO ACUTE DISTRESS OR DISCOMFORT OBSERVED. SR ON TELE WITH HR 83 WITH OCCASIONAL PVCs. ON 2LPM OF O2 VIA NC, RESPIRATION IS EVEN AND UNLABORED WITH NO SOB. WITH L NGT, FLUSHED AND PATENT, WITH GTF RUNNING AT 30cc/hr, NO GASTRIC RESIDUAL NOTED. R CHEST WALL HD ACCESS WITH DRESSING INTACT. L HAND AND R HAND G20, FLUSHED AND KEPT PATENT, NO SIGNS OF INFILTRATION. PATIENT REPOSITIONED FOR COMFORT. NEEDS ANTICIPATED AND MET. SAFETY AND COMFORT ENSURED. BED IN LOW AND LOCKED POSITION. WILL MONITOR CLOSELY.
[2017-05-13 20:00] VITALS: BP 148/69
[2017-05-13] MEDS: ATORVASTATIN 40 MG TABLET PO SCH (21:14)
[2017-05-14] VITALS: BP 104/53
--- NOTE | 2017-05-14 00:30 | NUR ---
RN NOTES PATIENT OBSERVED TO BE AWAKE AND NOTED TO BE MOANING. PATIENT ALSO OBSERVED TO BE VERBALLY RESPONSIVE WITH STAFF WITH GARBLED SPEECH, NO ACUTE DISTRESS OR DISCOMFORT. PATIENT ALSO ABLE TO MOVE BOTH ARMS, (+) WEAKNESS, AND PATIENT TENDS TO BE TOUCHING HER NGT. PATIENT ATTEMPTED TO BE REDIRECTED BUT D/T CURRENT CONFUSION AND DISORIENTATION, UNABLE TO BE REDIRECTED. ATTEMPTED TO REDIRECT PATIENT'S ATTENTION WITH HOLDING A TOWEL OR PILLOW AND HIDING THE TUBE BUT WAS UNSUCCESSFUL. CN MADE AWARE, MD NOTIFIED. ORDER FOR BILATERAL SOFT WRIST RESTRAINTS OBTAINED. WILL MONITOR CLOSELY.
[2017-05-14] MEDS: BLOOD SUGAR DIAGNOSTIC 1 EACH STRIP IN SCH ×4 (01:13→18:04)
[2017-05-14] MEDS: INSULIN REGULAR, HUMAN 100 UNIT/ML 3 ML VIAL SQ PRN ×4 (01:14→18:06)
[2017-05-14 04:00] VITALS: BP 150/69
[2017-05-14 06:27] LABS: BASOPHILS % (AUTO) 0.4 % (0.0-2.0); EOSINOPHILS # (AUTO) 0.2 /CMM (0.0-0.7); EOSINOPHILS % (AUTO) 3.2 % (0.0-6.0); HEMATOCRIT 29 % (33-45); HEMOGLOBIN 9.8 g/dL (11.5-14.8); LYMPHOCYTES % (AUTO) 18.6 % (20.0-44.0); MEAN CORPUSCULAR HEMOGLOBIN 33 PG (26.0-33.0); MEAN CORPUSCULAR HGB CONC 34 g/dl (31.0-36.0); MEAN CORPUSCULAR VOLUME 97 fL (82-100); MONOCYTES # (AUTO) 0.6 /CMM (0.1-1.30); MONOCYTES % (AUTO) 12.5 % (2.0-12.0); NEUTROPHILS # (AUTO) 3.3 /CMM (1.8-8.9); NEUTROPHILS % (AUTO) 65.3 % (43.0-81.0); PLATELET COUNT (AUTO) 70 /CMM (150-450); RDW COEFFICIENT OF VARIATION 12.9 (11.5-15.0); RED BLOOD CELL COUNT(AUTO) 2.96 MIL/uL (4.0-5.2); WHITE BLOOD COUNT (AUTO) 5.1 K/uL (4.3-11.0)
[2017-05-14 06:46] LABS: CALCIUM, SERUM 8.1 mg/dL (8.5-10.1); CARBON DIOXIDE 26 mmol/L (21-32); CHLORIDE 102 mmol/L (98-107); CREATININE 4.2 mg/dL (0.6-1.3); GLUCOSE 173 mg/dL (74-106); MAGNESIUM 2.1 mg/dL (1.8-2.4); PHOSPHORUS 3.3 mg/dL (2.5-4.9); POTASSIUM 3.6 mmol/L (3.5-5.1); SODIUM SERUM 138 mmol/L (136-145); UREA NITROGEN, BLOOD 45 mg/dL (7-18)
--- NOTE | 2017-05-14 06:50 | NUR ---
TEXTED NADEGE PATEL FOR MRI APPROVAL.
--- NOTE | 2017-05-14 07:07 | NUR ---
RN CLOSING NOTES PATIENT SLEEPING COMFORTABLY, NO DISTRESS. B SOFT WRIST RESTRAINTS IN PLACE, RELEASE OF RESTRAINTS DONE WHILE PATIENT IS ASLEEP. SKIN INTEGRITY AND CIRCULATION ENSURED. TOLERATED GTF WELL, L NGT PATENT AND INTACT AND INPLACE. HOB ELEVATED, NO GASTRIC RESIDUAL NOTED. PATIENT KEPT CLEAN AND DRY. NEEDS ANTICIPATED AND MET. SAFETY AND COMFORT ENSURED. BED IN LOW AND LOCKED POSITION. WILL ENDORSE ACCORDINGLY FOR CONTINUITY OF CARE.
--- NOTE | 2017-05-14 07:10 | NUR ---
RN NOTES RECEIVED PATIENT ON BED, NON VERBAL , RESPIRATION EVEN AND UNLABORED, ON O2 AT 2L N/C, NO SOB NOTED, ON TELE SR IN 80'S WITH OCCASIONAL PVCs. NOVASOURCE AT 30CC/HR RUNNING VIA L NARS NGT, R CHEST WALL HD ACCESS WITH DRESSING INTACT. L HAND AND R HAND G20 IV SITES CDI, NO SIGNS OF INFILTRATION. SR UP x3, CALL LIGHT WITHIN EASY REACH, PATIENT REPOSITIONED FOR COMFORT. WILL CONTINUE TO MONITOR .
[2017-05-14 08:00] VITALS: BP 195/81
[2017-05-14] MEDS: SEVELAMER CARBONATE 0.8 GM POWD.PACK GT SCH ×3 (08:19→17:17)
[2017-05-14] MEDS: LEVETIRACETAM SOL (5 ML) 100 MG/ML UDC GT SCH ×2 (08:19→21:30)
[2017-05-14] MEDS: LACTULOSE 10 G/15 ML UDC (PYXIS) PO SCH ×3 (08:19→17:17)
[2017-05-14] MEDS: CARVEDILOL 6.25 MG TABLET PO SCH ×2 (08:20→17:18)
[2017-05-14] MEDS: NIFEdipine XL (30MG) 30 MG TAB PO SCH ×2 (08:20→21:30)
[2017-05-14] MEDS: HEPARIN SODIUM, PORCINE 5000 UNITS/1 ML VIAL SQ SCH ×2 (08:21→21:31)
[2017-05-14] MEDS: CLOTRIMAZOLE 1% 15 GM TUBE TP SCH ×2 (08:23→17:22)
[2017-05-14] MEDS: Z GUARD REMEDY 2 OZ OINT TP SCH ×2 (08:24→17:21)
[2017-05-14] MEDS: MEROPENEM 500 MG in IV NS 0.9% 50 ML IV SCH ×2 (08:25→21:30)
[2017-05-14 10:57] LABS: EOSINOPHILS % (MANUAL) 2 % (0-4); LYMPHOCYTES % (MANUAL) 5 % (16-48); MONOCYTES % (MANUAL) 7 % (0-11.0); NEUTROPHILS % (MANUAL) 86 (42-76)
[2017-05-14] MEDS ORDERED: RENAL NOVASOURCE 1,000 ML BOTTLE GT PRN (11:00)
--- NOTE | 2017-05-14 12:49 | NUR ---
WOUND CARE CONSULT PATIENT SEEN AND SKIN ASSESSED. 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 YOLANDA ARITA, HAS ORDERS IN PLACE FOR LOTRIMIN AND ZGUARD. ORDERED TURNING SCHEDULE AND HEEL FLOATING. PATIENT WILIAM 9; NEEDS TOTAL ASSISTANCE WITH TURNING AND REPOSITIONING. PT ON STRIKER GEL MATTRESS; RECOMMENDED ISOFLEX AIR MATTRESS TO RASHMI CASTANO, AND DAVID, PLASTERING SUPERVISOR. RN TO ACQUIRE AND PLACE PATIENT. WILL CONTINUE TO FOLLOW PATIENT NEEDED. Addendum: 05/14/17 at 1253 by SAM CORLEY RN Amended: Links added.
--- NOTE | 2017-05-14 13:25 | NUR ---
MRI ON HOLD PER DR. LIGHT,HE WILL LET US KNOW.
--- NOTE | 2017-05-14 13:56 | NUR ---
CX MRI PER DR. LIGHT
[2017-05-14 16:00] VITALS: BP 155/73
--- NOTE | 2017-05-14 18:00 | NUR ---
RN NOTE Vital signs stable. Respirations even and unlabored. Side rails up, in low position. Call light within reach. Patient opens eyes at times. Non verbal. Tube feeding at 35 cc/hour per NG tube. No residuals noted. No acute changes noted during shift. Will endorse to dry goods clerk for continuity of care.
[2017-05-14 20:00] VITALS: BP 129/62
[2017-05-14] MEDS: ATORVASTATIN 40 MG TABLET PO SCH (21:26)
[2017-05-14] MEDS: LINEZOLID 600 MG TABLET PO SCH (21:30)
[2017-05-15] MEDS: BLOOD SUGAR DIAGNOSTIC 1 EACH STRIP IN SCH ×4 (01:45→17:42)
[2017-05-15] MEDS: INSULIN REGULAR, HUMAN 100 UNIT/ML 3 ML VIAL SQ PRN ×4 (01:46→17:42)
[2017-05-15 06:54] LABS: BASOPHILS % (AUTO) 0.3 % (0.0-2.0); EOSINOPHILS # (AUTO) 0.1 /CMM (0.0-0.7); HEMATOCRIT 32 % (33-45); HEMOGLOBIN 10.8 g/dL (11.5-14.8); LYMPHOCYTES % (AUTO) 24.5 % (20.0-44.0); MEAN CORPUSCULAR HEMOGLOBIN 33 PG (26.0-33.0); MEAN CORPUSCULAR HGB CONC 34 g/dl (31.0-36.0); MEAN CORPUSCULAR VOLUME 96 fL (82-100); MONOCYTES # (AUTO) 0.7 /CMM (0.1-1.30); MONOCYTES % (AUTO) 16.4 % (2.0-12.0); NEUTROPHILS # (AUTO) 2.4 /CMM (1.8-8.9); NEUTROPHILS % (AUTO) 56.8 % (43.0-81.0); PLATELET COUNT (AUTO) 60 /CMM (150-450); RDW COEFFICIENT OF VARIATION 12.7 (11.5-15.0); RED BLOOD CELL COUNT(AUTO) 3.27 MIL/uL (4.0-5.2); WHITE BLOOD COUNT (AUTO) 4.2 K/uL (4.3-11.0)
[2017-05-15 06:55] LABS: CALCIUM, SERUM 9.1 mg/dL (8.5-10.1); CARBON DIOXIDE 27 mmol/L (21-32); CHLORIDE 104 mmol/L (98-107); CREATININE 4.9 mg/dL (0.6-1.3); GLUCOSE 147 mg/dL (74-106); MAGNESIUM 2.4 mg/dL (1.8-2.4); PHOSPHORUS 3.2 mg/dL (2.5-4.9); POTASSIUM 3.4 mmol/L (3.5-5.1); SODIUM SERUM 141 mmol/L (136-145); UREA NITROGEN, BLOOD 56 mg/dL (7-18)
--- NOTE | 2017-05-15 07:00 | NUR ---
RN NOTES RECEIVED PATIENT ON BED, NON VERBAL , RESPIRATION EVEN AND UNLABORED, ON O2 AT 2L N/C, NO SOB NOTED, NOVASOURCE AT 30CC/HR RUNNING VIA L NARS NGT, NO RESIDUAL NOTED, L HAND AND R HAND G20 IV SITES CDI,R CHEST WALL HD ACCESS WITH DRESSING INTACT, SR UP x3, CALL LIGHT WITHIN EASY REACH,BED LOCKED AND IN LOWEST POSITION , PATIENT REPOSITIONED FOR COMFORT. WILL CONTINUE TO MONITOR .
[2017-05-15 08:00] VITALS: BP 187/90
[2017-05-15 08:22] LABS: BAND % (MANUAL) 1 % (0.0-5.0); EOSINOPHILS % (MANUAL) 5 % (0-4); LYMPHOCYTES % (MANUAL) 30 % (16-48); MONOCYTES % (MANUAL) 12 % (0-11.0); NEUTROPHILS % (MANUAL) 52 (42-76); THYROID STIMULATING HORMONE 1.129 uIU/mL (0.358-3.74)
[2017-05-15] MEDS: MEROPENEM 500 MG in IV NS 0.9% 50 ML IV SCH ×2 (08:24→22:32)
[2017-05-15] MEDS: SEVELAMER CARBONATE 0.8 GM POWD.PACK GT SCH ×3 (08:25→17:42)
[2017-05-15] MEDS: LEVETIRACETAM SOL (5 ML) 100 MG/ML UDC GT SCH ×2 (08:26→22:29)
[2017-05-15] MEDS: LACTULOSE 10 G/15 ML UDC (PYXIS) PO SCH ×3 (08:26→16:37)
[2017-05-15] MEDS: HEPARIN SODIUM, PORCINE 5000 UNITS/1 ML VIAL SQ SCH ×2 (08:26→22:30)
[2017-05-15] MEDS: LINEZOLID 600 MG TABLET PO SCH ×2 (08:26→22:29)
[2017-05-15] MEDS: CARVEDILOL 6.25 MG TABLET PO SCH ×2 (08:27→16:37)
[2017-05-15] MEDS: NIFEdipine XL (30MG) 30 MG TAB PO SCH ×2 (08:27→22:30)
[2017-05-15] MEDS: Z GUARD REMEDY 2 OZ OINT TP SCH ×2 (08:30→16:39)
[2017-05-15] MEDS: CLOTRIMAZOLE 1% 15 GM TUBE TP SCH ×2 (08:30→16:39)
[2017-05-15] MEDS: CYANOCOBALAMIN 500 MCG TABLET PO SCH (08:55)
[2017-05-15] MEDS ORDERED: POTASSIUM CHLORIDE 20 MEQ TAB.PRT.SR PO ONE ×2 (09:30→11:00)
[2017-05-15] MEDS ORDERED: POTASSIUM CHLORIDE 20 MEQ POWDER PACKET NG ONE (11:30)
[2017-05-15] MEDS ORDERED: CHLORHEXIDINE GLUCONATE 4% 118 ML BOTTLE TP SCH (12:00)
--- NOTE | 2017-05-15 12:00 | NUR ---
RN NOTES TOLERAING NOVASOURCE AT 35CC/HR WELL, NO RESIDUAL NOTED, CONTINUE TO MONITOR .
[2017-05-15 16:00] VITALS: BP_SYST 154; BP_SYST 184; BP_DIAS 78; BP_DIAS 79
--- NOTE | 2017-05-15 18:37 | NUR ---
RN NOTES RESPIRATION EVEN AND UNLABORED, NO DISTRESS NOTED, SR UP x3, CALL LIGHT WITHIN EASY REACH, BED LOCKED AND IN LOWEST POSITION , WILL ENDORSE TO TRAIN ELECTRONIC TECHNICIAN NURSE FOR SVITLANA .
[2017-05-15 20:00] VITALS: BP 191/75
[2017-05-15] MEDS: ATORVASTATIN 40 MG TABLET PO SCH (22:29)
[2017-05-16] VITALS (8 sets, daily range): BP systolic 148–192; BP diastolic 68–95
[2017-05-16] MEDS: INSULIN REGULAR, HUMAN 100 UNIT/ML 3 ML VIAL SQ PRN ×4 (00:54→17:26)
[2017-05-16] MEDS: BLOOD SUGAR DIAGNOSTIC 1 EACH STRIP IN SCH ×4 (00:54→17:20)
--- NOTE | 2017-05-16 07:16 | NUR ---
RN NOTE PT REMAINS IN NO ACUTE DISTRESS IN BED. PT DID NOT HAVE ANY SIGNIFICANT CHANGE IN CONDITION DURING SHIFT. ALL NEEDS MET, ALL ORDERS CARRIED OUT. WILL ENDORSE CARE TO AM RN FOR CONTINUITY OF CARE.
[2017-05-16 07:22] LABS: BASOPHILS % (AUTO) 0.4 % (0.0-2.0); EOSINOPHILS % (AUTO) 1.4 % (0.0-6.0); HEMATOCRIT 27 % (33-45); HEMOGLOBIN 9.3 g/dL (11.5-14.8); LYMPHOCYTES # (AUTO) 0.9 /CMM (0.8-4.8); LYMPHOCYTES % (AUTO) 27.2 % (20.0-44.0); MEAN CORPUSCULAR HEMOGLOBIN 33 PG (26.0-33.0); MEAN CORPUSCULAR HGB CONC 34 g/dl (31.0-36.0); MEAN CORPUSCULAR VOLUME 97 fL (82-100); MONOCYTES # (AUTO) 0.5 /CMM (0.1-1.30); MONOCYTES % (AUTO) 15.5 % (2.0-12.0); NEUTROPHILS # (AUTO) 1.9 /CMM (1.8-8.9); NEUTROPHILS % (AUTO) 55.5 % (43.0-81.0); PLATELET COUNT (AUTO) 57 /CMM (150-450); WHITE BLOOD COUNT (AUTO) 3.4 K/uL (4.3-11.0)
[2017-05-16 07:23] LABS: CARBON DIOXIDE 32 mmol/L (21-32); CHLORIDE 108 mmol/L (98-107); CREATININE 3.7 mg/dL (0.6-1.3); GLUCOSE 224 mg/dL (74-106); MAGNESIUM 2.3 mg/dL (1.8-2.4); PHOSPHORUS 2.3 mg/dL (2.5-4.9); POTASSIUM 4.4 mmol/L (3.5-5.1); SODIUM SERUM 144 mmol/L (136-145); UREA NITROGEN, BLOOD 37 mg/dL (7-18)
--- NOTE | 2017-05-16 07:30 | NUR ---
MS RN OPENING RECEIVED PATIENT NON VERBAL. NO S/S ACUTE DISTRESS NOTED. NO SOB, DIFFICULTY BREATHING AND FLACC 0. PATIENT REPOSITIONED AND HEELS AND ELBOWS OFFLOADED. WILL CONTINUE TO MONITOR. KEEPING CLEAN AND DRY. OFFLOADING HEELS AND ELBOWS. PATIENT APPEARS STABLE AT THIS TIME. BED LOWERED AND LOCKED, RAILS UPX3 FOR SAFETY. BED ALARM ON. WILL ROUND Q2H OR LESS PER NEEDS.
--- NOTE | 2017-05-16 07:45 | NUR ---
WHEEL ASSEMBLER NOTES PATIENT MOUTH VERY DRY. TONGUE IS HARDENED. ORAL CARE COMPLETED. WILL MONITOR CLOSELY
[2017-05-16] MEDS: MEROPENEM 500 MG in IV NS 0.9% 50 ML IV SCH ×2 (08:59→21:50)
[2017-05-16] MEDS: SEVELAMER CARBONATE 0.8 GM POWD.PACK GT SCH ×3 (08:59→17:19)
[2017-05-16] MEDS: LINEZOLID 600 MG TABLET PO SCH ×2 (09:00→21:50)
[2017-05-16] MEDS: Z GUARD REMEDY 2 OZ OINT TP SCH ×2 (09:00→16:25)
[2017-05-16] MEDS: LEVETIRACETAM SOL (5 ML) 100 MG/ML UDC GT SCH ×2 (09:00→21:49)
[2017-05-16] MEDS: CARVEDILOL 6.25 MG TABLET PO SCH ×2 (09:00→16:25)
[2017-05-16] MEDS: CYANOCOBALAMIN 500 MCG TABLET PO SCH (09:00)
[2017-05-16] MEDS: LACTULOSE 10 G/15 ML UDC (PYXIS) PO SCH ×3 (09:01→16:25)
[2017-05-16] MEDS: CLOTRIMAZOLE 1% 15 GM TUBE TP SCH ×2 (09:01→17:19)
[2017-05-16] MEDS: HEPARIN SODIUM, PORCINE 5000 UNITS/1 ML VIAL SQ SCH ×2 (09:17→21:51)
[2017-05-16] MEDS: NIFEdipine (10MG) 10 MG CAPSULE PO SCH ×2 (09:46→21:50)
--- NOTE | 2017-05-16 10:00 | NUR ---
MS RN NOTES DR ZAIRE LOAZNO AT BEDSIDE
[2017-05-16 10:15] LABS: LYMPHOCYTES % (MANUAL) 16 % (16-48); MONOCYTES % (MANUAL) 17 % (0-11.0); NEUTROPHILS % (MANUAL) 67 (42-76)
[2017-05-16] MEDS ORDERED: NEUTRA PHOS 1 POWD.PACKET NG ONE (14:00)
--- NOTE | 2017-05-16 14:00 | NUR ---
MS RN NOTES PATIENT IS MORE ALERT TODAY. ABLE TO COMMUNICATE NEEDS, NAME, , AND AWARE SHE IS IN THE HOSPITAL. PATIENT NEEDS IN REACH, STILL ATTEMPTING TO PUTT OUT NG TUBE SHE STATES SHE WANTS TO EAT ORANGES. WILL CONTINUE TO ROM AND RELEASE OF RESTRAINTS WITH SUPERVISION.
[2017-05-16] MEDS: hydrALAZINE HCL IV 20 MG VIAL IV PRN (16:26)
--- NOTE | 2017-05-16 16:26 | NUR ---
MANAGER DOMESTIC NOTES PATIENT SBP 180. PRN IV HYDRALIZINE GIVEN ORDERED.PATIENT TLEE NSR. STABLE. MESSAGE TO DR WAY
--- NOTE | 2017-05-16 16:59 | NUR ---
IP COUNSEL NOTES NOTIFIED DR SEGUNDO OF PATIENT BP AND ONYL IV HYDRALAZINE PRN ORDERED. PER MD PAYNE TO CONSULT WITH DR WAY. MESSAGE WITH DR WAY EXCHANGE
--- NOTE | 2017-05-16 17:03 | NUR ---
WREATH AND GARLAND MAKER HAND NOTES SPOKE WITH DR WAY. HE WILL FOLLOW UP. PER MD KEEP PATIENT TELE AT THIS TIME AND OK TO CONTINUE WITH ORDERED HYDRALAZINE. NO ORDERS AT THIS TIME
--- NOTE | 2017-05-16 19:16 | NUR ---
TECHNICAL HEALTHCARE CONSULTANT CLOSING PATIENT STABLE AT THIS TIME. DENIES SOB, DIFFICULTY BREATHING OR PAIN. NG TUBE IN PLACE WITH NO MOVEMENT. PATIENT TOLERATED TUBE FEEDING NO RESIDUAL NOTED. ALL DUE MEDS GIVEN AND ALL NEEDS MET. PATIENT IN POSITION OF COMFORT. ROM PROVIDED THROUGHOUT DAY AND RESTRAINTS RELEASED THROUGHOUT DAY. PATIENT CARE ENDORSED TO RASHMI DE PAZ FOR SVITLANA. BED LOWERED AND LOCKED, RAILS UPX3 FOR SAFETY AND BED ALARM ON.
--- NOTE | 2017-05-16 19:40 | NUR ---
SCREEN EXAMINER INITIAL NOTE PT RECEIVED IN NO ACUTE DISTRESS AT THIS TIME. PT IS A/O X1 TRACKS WITH EYES BUT UNABLE TO MAKE NEEDS KNOWN. PT IS ON TELE WITH SR 71 DUE TO IV HYDRALAZINE PRN. PT HAS NGT FEEDING NOVASOURCE @30CC/HR IN LEFT NARE. R HAND 20G, LEFT HAND 20G, AND RCW HD CATH ARE ALL CLEAN DRY AND INTACT. COMFORT AND SAFETY MEASURES TO BE ENSURED DURING THE SHIFT. WILL CONTINUE TO MONITOR FOR ANY CHANGES DURING THE SHIFT.
[2017-05-16] MEDS: ATORVASTATIN 40 MG TABLET PO SCH (21:49)
--- NOTE | 2017-05-16 22:20 | NUR ---
PT HAD BP OF 192/102. GAVE BP MEDICATIONS ORDERED AND SCHEDULED. RECHECKED VITALS AN HOUR AFTERWARDS AND BP HAD GONE DOWN TO 131/52 WITH A OK OF 68. WILL CONTINUE TO MONITOR VITALS THROUGHOUT SHIFT. IVP HYDRALAZINE IS AVAILABLE IF NEEDED.
[2017-05-17] MEDS: BLOOD SUGAR DIAGNOSTIC 1 EACH STRIP IN SCH ×4 (00:05→18:20)
[2017-05-17] MEDS: INSULIN REGULAR, HUMAN 100 UNIT/ML 3 ML VIAL SQ PRN ×3 (00:17→19:08)
[2017-05-17] MEDS: hydrALAZINE HCL IV 20 MG VIAL IV PRN (03:24)
[2017-05-17 06:44] LABS: BASOPHILS % (AUTO) 0.2 % (0.0-2.0); EOSINOPHILS # (AUTO) 0.1 /CMM (0.0-0.7); EOSINOPHILS % (AUTO) 2.1 % (0.0-6.0); HEMATOCRIT 31 % (33-45); HEMOGLOBIN 10.5 g/dL (11.5-14.8); LYMPHOCYTES # (AUTO) 0.8 /CMM (0.8-4.8); LYMPHOCYTES % (AUTO) 18.9 % (20.0-44.0); MEAN CORPUSCULAR HEMOGLOBIN 33 PG (26.0-33.0); MEAN CORPUSCULAR HGB CONC 33 g/dl (31.0-36.0); MEAN CORPUSCULAR VOLUME 98 fL (82-100); MONOCYTES # (AUTO) 0.6 /CMM (0.1-1.30); MONOCYTES % (AUTO) 13.1 % (2.0-12.0); NEUTROPHILS # (AUTO) 2.8 /CMM (1.8-8.9); NEUTROPHILS % (AUTO) 65.7 % (43.0-81.0); PLATELET COUNT (AUTO) 77 /CMM (150-450); RDW COEFFICIENT OF VARIATION 12.8 (11.5-15.0); RED BLOOD CELL COUNT(AUTO) 3.22 MIL/uL (4.0-5.2); WHITE BLOOD COUNT (AUTO) 4.3 K/uL (4.3-11.0)
[2017-05-17 07:03] LABS: CALCIUM, SERUM 9.7 mg/dL (8.5-10.1); CARBON DIOXIDE 29 mmol/L (21-32); CHLORIDE 109 mmol/L (98-107); CREATININE 4.4 mg/dL (0.6-1.3); GLUCOSE 217 mg/dL (74-106); MAGNESIUM 2.5 mg/dL (1.8-2.4); POTASSIUM 3.8 mmol/L (3.5-5.1); SODIUM SERUM 146 mmol/L (136-145); UREA NITROGEN, BLOOD 47 mg/dL (7-18)
--- NOTE | 2017-05-17 07:10 | NUR ---
MANAGER PRACTICE NOTE: RECEIVED PT AWAKE IN BED, LETHARGIC, A&OX1, TURKISH SPEAKING, DENIES PAIN. ON 2LPM O2 VIA NC, RESPIRATIONS EVEN AND UNLABORED WITH NO SOB NOTED. ON NOVASOURCE @35CC/HR VIA NG TUBE. ON TELE MONITOR WITH SR, HR 77. R HAND AND L HAND IV INTACT AND PATENT. RCW HD CATH CDI. REMOVED B/L WRIST RESTRAINTS- REORIENT NEEDED. ISOLATION PRECAUTIONS IN PLACE. HOB ELEVATED, BED LOW, LOCKED, X2 SIDERAILS UP AND CALL LIGHT WITHIN REACH. WILL CONT TO MONITOR.
[2017-05-17 08:00] VITALS: BP_SYST 194; BP_DIAS 75; BP_DIAS 85
[2017-05-17] MEDS: SEVELAMER CARBONATE 0.8 GM POWD.PACK GT SCH ×3 (08:00→18:00)
[2017-05-17] MEDS: LEVETIRACETAM SOL (5 ML) 100 MG/ML UDC GT SCH (09:00)
[2017-05-17] MEDS: LACTULOSE 10 G/15 ML UDC (PYXIS) PO SCH ×3 (09:00→17:00)
[2017-05-17] MEDS: hydrALAZINE HCL 50 MG TABLET PO SCH ×3 (09:00→17:00)
[2017-05-17] MEDS: CYANOCOBALAMIN 500 MCG TABLET PO SCH (09:00)
[2017-05-17] MEDS: CLOTRIMAZOLE 1% 15 GM TUBE TP SCH ×2 (09:00→17:34)
[2017-05-17] MEDS: CARVEDILOL 6.25 MG TABLET PO SCH ×2 (09:00→17:00)
[2017-05-17] MEDS: LINEZOLID 600 MG TABLET PO SCH ×2 (09:00→20:33)
[2017-05-17 09:33] LABS: BAND % (MANUAL) 1 % (0.0-5.0); EOSINOPHILS % (MANUAL) 3 % (0-4); LYMPHOCYTES % (MANUAL) 10 % (16-48); MONOCYTES % (MANUAL) 7 % (0-11.0); NEUTROPHILS % (MANUAL) 79 (42-76)
--- NOTE | 2017-05-17 10:30 | NUR ---
FEATURES REPORTER NOTE: DR. SEGUNDO AWARE CLOGGED NG TUBE REMOVED AND UNABLE TO REINSERT NG TUBE DUE TO PATIENT'S MENTAL STATUS. INFORMED THAT 0800 AND 0900 MEDICATIONS VIA NG TUBE NOT GIVEN AND NOVASOURCE. PER DR. SEGUNDO, WILL ORDER GI CONSULT FOR POSSIBLE PEG PLACEMENT.
[2017-05-17] MEDS: MEROPENEM 500 MG in IV NS 0.9% 50 ML IV SCH ×2 (11:09→20:35)
--- NOTE | 2017-05-17 11:30 | NUR ---
INSURANCE OFFICE SUPERVISOR NOTE: PROGRAM COUNSELOR AT BEDSIDE.
[2017-05-17 12:00] VITALS: BP 191/86
--- NOTE | 2017-05-17 12:00 | NUR ---
PUBLIC POLICY PROFESSOR NOTE: DIALYSIS NURSE AT BEDSIDE. LABS REVIEWED WITH DIALYSIS NURSE.
[2017-05-17] MEDS: NIFEdipine (10MG) 10 MG CAPSULE PO SCH ×2 (13:00→20:33)
--- NOTE | 2017-05-17 14:50 | NUR ---
CHEMICAL MILLING PROCESSOR NOTE: DIALYSIS NURSE REPORTED 2L OF FLUID REMOVED.
[2017-05-17] MEDS: Z GUARD REMEDY 2 OZ OINT TP SCH ×2 (15:07→17:34)
[2017-05-17 16:00] VITALS: BP 152/75
[2017-05-17] MEDS: LEVETIRACETAM (500MG) 500 MG in IV NS 0.9% 100 ML IV SCH (16:18)
[2017-05-17] MEDS: NITROGLYCERIN 30 GM TUBE TP SCH ×2 (16:36→20:36)
--- NOTE | 2017-05-17 17:34 | NUR ---
LABOR DELIVERY RN NOTE: 1700 SCHEDULED MEDS VIA NGT NOT GIVEN DUE TO NGT REMOVAL. AWAITING OT EVAL FOR TOMORROW.
--- NOTE | 2017-05-17 18:45 | NUR ---
SHINGLE WEAVER NOTE: PATIENT REMAINED A&OX1, DENIED PAIN. ON TELE MONITOR WITH SR, HR 62. AWAITING CONSENT FOR EGD FROM SON ALAN. PER ALAN, WILL BE VISITING PATIENT TODAY (PHONE [phone]. ORDERS CARRIED OUT. HOB ELEVATED, BED LOW, LOCKED, X2 SIDE RAILS UP AND CALL LIGHT WITHIN REACH. WILL ENDORSE TO MANAGER EMERGENCY DEPARTMENT NURSE FOR SVITLANA.
--- NOTE | 2017-05-17 19:16 | NUR ---
TRIAGE ASSISTANT INITIAL NOTE PT RECEIVED IN NO ACUTE DISTRESS AT THIS TIME. PT IS A/O X1 TRACKS WITH EYES BUT UNABLE TO MAKE NEEDS KNOWN. PT IS ON TELE WITH SR 71 DUE TO IV HYDRALAZINE PRN. R HAND 20G, LEFT HAND 20G, AND RCW HD CATH ARE ALL CLEAN DRY AND INTACT AND HAD HD 2L OUT TODAY. COMFORT AND SAFETY MEASURES TO BE ENSURED DURING THE SHIFT. WILL CONTINUE TO MONITOR FOR ANY CHANGES DURING THE SHIFT.
[2017-05-17 20:00] VITALS: BP 130/68
[2017-05-17] MEDS: IV D5/ 0.9% NACL 1,000 ML IV PRN (20:46)
[2017-05-17] MEDS: ATORVASTATIN 40 MG TABLET PO SCH (21:06)
[2017-05-18] MEDS: BLOOD SUGAR DIAGNOSTIC 1 EACH STRIP IN SCH ×5 (00:56→22:37)
[2017-05-18] MEDS: LEVETIRACETAM (500MG) 500 MG in IV NS 0.9% 100 ML IV SCH ×2 (02:17→15:59)
[2017-05-18 04:00] VITALS: BP 170/79
[2017-05-18] MEDS: NIFEdipine (10MG) 10 MG CAPSULE PO SCH ×4 (04:03→21:00)
[2017-05-18 06:33] LABS: BASOPHILS % (AUTO) 0.5 % (0.0-2.0); EOSINOPHILS # (AUTO) 0.1 /CMM (0.0-0.7); EOSINOPHILS % (AUTO) 1.9 % (0.0-6.0); HEMATOCRIT 28 % (33-45); HEMOGLOBIN 9.5 g/dL (11.5-14.8); LYMPHOCYTES # (AUTO) 1.2 /CMM (0.8-4.8); LYMPHOCYTES % (AUTO) 31.4 % (20.0-44.0); MEAN CORPUSCULAR HEMOGLOBIN 33 PG (26.0-33.0); MEAN CORPUSCULAR HGB CONC 34 g/dl (31.0-36.0); MEAN CORPUSCULAR VOLUME 98 fL (82-100); MONOCYTES # (AUTO) 0.6 /CMM (0.1-1.30); MONOCYTES % (AUTO) 14.8 % (2.0-12.0); NEUTROPHILS % (AUTO) 51.4 % (43.0-81.0); PLATELET COUNT (AUTO) 65 /CMM (150-450); RDW COEFFICIENT OF VARIATION 13.1 (11.5-15.0)
[2017-05-18] MEDS ORDERED: ANESTHESIA TRAY IN PYXIS 1 EA TRAY MC ONE (06:53)
[2017-05-18] MEDS: hydrALAZINE HCL IV 20 MG VIAL IV PRN ×3 (06:57→21:36)
[2017-05-18 07:03] LABS: CALCIUM, SERUM 8.8 mg/dL (8.5-10.1); CARBON DIOXIDE 31 mmol/L (21-32); CHLORIDE 109 mmol/L (98-107); CREATININE 4.1 mg/dL (0.6-1.3); GLUCOSE 133 mg/dL (74-106); POTASSIUM 3.8 mmol/L (3.5-5.1); SODIUM SERUM 148 mmol/L (136-145); UREA NITROGEN, BLOOD 34 mg/dL (7-18)
--- NOTE | 2017-05-18 07:30 | NUR ---
RN KAMRON RECEIVED PATIENT AWAKE ALERT UNABLE TO KNOW ORIENTATION AFEBRILE PLACED ON NPO PER DIAGNOSIS, WILL PERFORM SWALLOW EVALUATION BEFORE CONSIDERING PEG PLACEMENT AWAITING SWALLOW RUG INSPECTOR HELPER
[2017-05-18 08:00] VITALS: BP 130/60
[2017-05-18] MEDS: SEVELAMER CARBONATE 0.8 GM POWD.PACK GT SCH ×3 (08:00→17:49)
[2017-05-18] MEDS: MEROPENEM 500 MG in IV NS 0.9% 50 ML IV SCH ×2 (08:26→20:59)
[2017-05-18] MEDS: LINEZOLID 600 MG TABLET PO SCH ×3 (09:00→20:59)
[2017-05-18] MEDS: CARVEDILOL 6.25 MG TABLET PO SCH ×2 (09:00→16:00)
[2017-05-18] MEDS: hydrALAZINE HCL 50 MG TABLET PO SCH ×3 (09:00→16:00)
[2017-05-18] MEDS: LACTULOSE 10 G/15 ML UDC (PYXIS) PO SCH ×3 (09:00→16:00)
[2017-05-18] MEDS: CYANOCOBALAMIN 500 MCG TABLET PO SCH (09:00)
[2017-05-18 09:11] LABS: BAND % (MANUAL) 3 % (0.0-5.0); EOSINOPHILS % (MANUAL) 1 % (0-4); LYMPHOCYTES % (MANUAL) 23 % (16-48); MONOCYTES % (MANUAL) 13 % (0-11.0); NEUTROPHILS % (MANUAL) 60 (42-76)
[2017-05-18] MEDS: CLOTRIMAZOLE 1% 15 GM TUBE TP SCH ×2 (09:43→16:01)
[2017-05-18] MEDS: NITROGLYCERIN 30 GM TUBE TP SCH ×2 (09:44→21:03)
[2017-05-18] MEDS: Z GUARD REMEDY 2 OZ OINT TP SCH ×2 (09:44→16:01)
[2017-05-18] MEDS: INSULIN REGULAR, HUMAN 100 UNIT/ML 3 ML VIAL SQ PRN ×3 (11:09→22:36)
--- NOTE | 2017-05-18 11:24 | NUR ---
RN KAMRON PASSED SWALLOW EVALUATION WILL START PUREED DIET PER OT SUGGESTION DR. MORIN AND SURGERY IS INFORMED DR. SEGUNDO SAW THE PATIENT AND INFORMED SWALLOW EVAL RESULT PUREED DIET ORDERED PER
[2017-05-18 12:00] VITALS: BP 126/69
[2017-05-18] MEDS: IV D5/ 0.9% NACL 1,000 ML IV PRN (14:22)
[2017-05-18 16:00] VITALS: BP_SYST 125; BP_SYST 126; BP_DIAS 69; BP_DIAS 71
--- NOTE | 2017-05-18 18:31 | NUR ---
RN KAMRON PATIENT IS ABLE TO FINISH HER MEAL WITH GOOD APPETITE ASPIRATION PRECAUTION OBSERVED ENDORSED TO NOD
[2017-05-18 20:00] VITALS: BP 170/68
--- NOTE | 2017-05-18 20:00 | NUR ---
ORNAMENTAL METAL FABRICATOR APPRENTICE: PT RECEIVED IN NO ACUTE DISTRESS AT THIS TIME. PT IS A/O X1 TRACKS WITH EYES BUT UNABLE TO MAKE NEEDS KNOWN. ON TELE WITH SR 70-80. R HAND 20G, LEFT HAND 20G, AND RCW HD CATH ARE ALL CLEAN DRY AND INTACT. COMFORT AND SAFETY MEASURES TO BE ENSURED DURING THE SHIFT. WILL CONTINUE TO MONITOR .....
[2017-05-18] MEDS: ATORVASTATIN 40 MG TABLET PO SCH (21:02)
[2017-05-19] VITALS: BP 155/71
--- NOTE | 2017-05-19 01:14 | NUR ---
WOOL WASHER; REPORT GIVEN TO PATI/RN FOR CONTINUITY OF CARE... MADE AWARE ALL ORDERS.
--- NOTE | 2017-05-19 01:15 | NUR ---
RECEIVED CONTINUITY OF CARE FROM [facility]. PATIENT ASLEEP, NO S/S OF PAIN OR DISCOMFORT. NO RESPIRATORY DISTRESS NOTED. SKIN WARM AND DRY TO TOUCH. ISOLATION PRECAUTIONS OBSERVED. SIDE RAILS UP AND LOCKED. BED KEPT AT LOWEST POSITION. CALL LIGHT KEPT WITHIN EASY REACH. WILL CONTINUE TO MONITOR.
[2017-05-19] MEDS: LEVETIRACETAM (500MG) 500 MG in IV NS 0.9% 100 ML IV SCH ×2 (03:55→15:20)
[2017-05-19 04:00] VITALS: BP 156/70
[2017-05-19] MEDS: NIFEdipine (10MG) 10 MG CAPSULE PO SCH ×3 (05:00→21:00)
[2017-05-19 06:29] LABS: BASOPHILS % (AUTO) 0.3 % (0.0-2.0); EOSINOPHILS # (AUTO) 0.1 /CMM (0.0-0.7); EOSINOPHILS % (AUTO) 2.1 % (0.0-6.0); HEMATOCRIT 27 % (33-45); HEMOGLOBIN 9.3 g/dL (11.5-14.8); LYMPHOCYTES % (AUTO) 25.5 % (20.0-44.0); MEAN CORPUSCULAR HEMOGLOBIN 33 PG (26.0-33.0); MEAN CORPUSCULAR HGB CONC 34 g/dl (31.0-36.0); MEAN CORPUSCULAR VOLUME 97 fL (82-100); MONOCYTES # (AUTO) 0.6 /CMM (0.1-1.30); MONOCYTES % (AUTO) 14.4 % (2.0-12.0); NEUTROPHILS # (AUTO) 2.3 /CMM (1.8-8.9); NEUTROPHILS % (AUTO) 57.7 % (43.0-81.0); PLATELET COUNT (AUTO) 79 /CMM (150-450); RDW COEFFICIENT OF VARIATION 13.3 (11.5-15.0); RED BLOOD CELL COUNT(AUTO) 2.81 MIL/uL (4.0-5.2); WHITE BLOOD COUNT (AUTO) 4.1 K/uL (4.3-11.0)
[2017-05-19 06:41] LABS: CALCIUM, SERUM 8.9 mg/dL (8.5-10.1); CARBON DIOXIDE 29 mmol/L (21-32); CHLORIDE 110 mmol/L (98-107); CREATININE 5.1 mg/dL (0.6-1.3); GLUCOSE 91 mg/dL (74-106); POTASSIUM 3.8 mmol/L (3.5-5.1); SODIUM SERUM 148 mmol/L (136-145); UREA NITROGEN, BLOOD 41 mg/dL (7-18)
--- NOTE | 2017-05-19 07:18 | NUR ---
RN INITIAL NOTES: REC'D PT ASLEEP ON BED, NOT IN ANY DISTRESS, A/O X1, EASILY AROUSABLE. ON 2LPM/NC, NO SOB, SATURATING 100%. ON TELEMONITOR, SR. HAS 2 IV ACCESS: R HAND G20 AND L HAND G20, FLUSHING WELL, NO S/SX OF INFECTION/INFILTRATION NOTED. HAS R CW HD CATH INTACT. PROVIDED COMFORT & SAFETY MEASURES. BED KEPT LOW & IN LOCKED POS. CALL LIGHT PLACED W/IN REACH. WILL CONTINUE TO MONITOR AND ATTEND PT NEEDS.
--- NOTE | 2017-05-19 07:37 | NUR ---
SKEIN BANDER CLOSING NOTES NO SIGNIFICANT CHANGES OVERNIGHT. NO RESPIRATORY DISTRESS NOTED. PROCARDIA NOT GIVEN, PATIENT NOT ABLE TO SWALLOW MEDICATION. ALL NEEDS ANTICIPATED AND MET. KEPT CLEAN AND DRY. TURNED AND REPOSITIONED Q2 AND PRN. SIDE RAILS UP AND LOCKED. BED KEPT AT LOWEST POSITION. BILATERAL SOFT WRIST RESTRAINTS IN PLACE TO PREVENT FROM PULLING TUBES. CALL LIGHT KEPT WITHIN EASY REACH. CONTINUITY OF CARE ENDORSED TO AM NURSE.
[2017-05-19 08:00] VITALS: BP 130/63
[2017-05-19] MEDS: BLOOD SUGAR DIAGNOSTIC 1 EACH STRIP IN SCH ×4 (08:23→21:50)
[2017-05-19] MEDS: LACTULOSE 10 G/15 ML UDC (PYXIS) PO SCH ×3 (08:24→17:00)
[2017-05-19] MEDS: CARVEDILOL 6.25 MG TABLET PO SCH ×2 (08:24→17:00)
[2017-05-19] MEDS: SEVELAMER CARBONATE 0.8 GM POWD.PACK GT SCH ×3 (08:24→17:52)
[2017-05-19] MEDS: hydrALAZINE HCL 50 MG TABLET PO SCH ×3 (08:24→17:00)
[2017-05-19] MEDS: CLOTRIMAZOLE 1% 15 GM TUBE TP SCH ×2 (08:25→17:53)
[2017-05-19] MEDS: INSULIN REGULAR, HUMAN 100 UNIT/ML 3 ML VIAL SQ PRN ×4 (08:26→21:51)
[2017-05-19] MEDS: Z GUARD REMEDY 2 OZ OINT TP SCH ×2 (08:26→17:52)
[2017-05-19] MEDS: CYANOCOBALAMIN 500 MCG TABLET PO SCH (08:29)
[2017-05-19] MEDS: NITROGLYCERIN 30 GM TUBE TP SCH ×2 (09:21→21:48)
[2017-05-19 09:41] LABS: EOSINOPHILS % (MANUAL) 1 % (0-4); LYMPHOCYTES % (MANUAL) 17 % (16-48); MONOCYTES % (MANUAL) 15 % (0-11.0); NEUTROPHILS % (MANUAL) 67 (42-76)
[2017-05-19] MEDS ORDERED: CLONIDINE HCL 0.3 MG/24H PTWK 1 EA PATCH TD SCH (10:30)
[2017-05-19 12:00] VITALS: BP 109/55
[2017-05-19 16:00] VITALS: BP 101/55
--- NOTE | 2017-05-19 18:48 | NUR ---
RN CLOSING NOTES: NO ACUTE CHANGES NOTED W/IN SHIFT. PT TOLERATED O2 AT 2LPM/NC, NO SOB. ON TELEMONITOR, STILL SR. 2 IV ACCESS: R HAND G20 AND L HAND G20, KEPT PATENT & INTACT W/ NO S/SX OF INFECTION/INFILTRATION NOTED. R CW HD CATH KEPT INTACT AND IN PLACE. HD DONE TODAY W/ 2L OUTPUT. CLONIDINE PATCH STARTED AT 6PM DUE TO LOW BP POST HD. WOUND CARE DONE. TURNED AND REPOSITIONED Q2H. PT TOLERATED PUREED DIET, STRICT ASPIRATION PRECAUTION OBSERVED. PT KEPT WELL RESTED. NEEDS ATTENDED. BED KEPT LOW & IN LOCKED POS. CALL LIGHT PLACED W/IN REACH. WILL ENDORSE TO PM RN FOR SVITLANA.
--- NOTE | 2017-05-19 19:30 | NUR ---
RN INITIAL NOTES RECEIVED PT AWAKE ON BED, A/O X1, URDU SPEAKING ONLY. ON 2L NASAL CANNULA SATURATING WELL, NO S/S OF RESP DISTRESS. CURRENTLY SR ON THE MONITOR, HR 70'S. ON DIAPERS ONLY. RIGHT HAND 20G AND LEFT HAND 20G FLUSHED AND PATENT, NO S/S OF INFILTRATION/INFECTION, ALL DRESSINGS CDI. BILATERAL SOFT WRIST RESTRAINTS IN PLACE FOR PATIENT SAFETY. BED LOW AND LOCKED, SIDERAILS UP, BED ALARM ON. WILL MONITOR
[2017-05-19 20:00] VITALS: BP 112/59
--- NOTE | 2017-05-19 21:58 | NUR ---
RN NOTES PROCARDIA NON-ADMINISTERED DUE TO PT SPITTING THE MEDICATION. CURRENT BP 114/60, HR 68.
[2017-05-20] VITALS (8 sets, daily range): BP systolic 84–142; BP diastolic 29–68
[2017-05-20] MEDS: LEVETIRACETAM (500MG) 500 MG in IV NS 0.9% 100 ML IV SCH (02:15)
[2017-05-20] MEDS: NIFEdipine (10MG) 10 MG CAPSULE PO SCH ×3 (05:00→12:43)
--- NOTE | 2017-05-20 05:34 | NUR ---
RN NOTES UNABLE TO ADMINISTER SCHEDULED PROCARDIA. PT SPITS OUT THE MEDICATION. CURRENT BP 135/75, HR 71
--- NOTE | 2017-05-20 06:30 | NUR ---
RN CLOSING NOTES PT REMAINS STABLE OF THE MOMENT. ALL DUE MEDS GIVEN, AM CARE PROVIDED. WILL ENDORSE SVITLANA TO AM RN
[2017-05-20 07:35] LABS: BASOPHILS % (AUTO) 0.3 % (0.0-2.0); EOSINOPHILS # (AUTO) 0.1 /CMM (0.0-0.7); EOSINOPHILS % (AUTO) 1.1 % (0.0-6.0); HEMATOCRIT 29 % (33-45); HEMOGLOBIN 9.8 g/dL (11.5-14.8); LYMPHOCYTES # (AUTO) 1.5 /CMM (0.8-4.8); LYMPHOCYTES % (AUTO) 27.2 % (20.0-44.0); MEAN CORPUSCULAR HEMOGLOBIN 33 PG (26.0-33.0); MEAN CORPUSCULAR HGB CONC 34 g/dl (31.0-36.0); MEAN CORPUSCULAR VOLUME 98 fL (82-100); MONOCYTES # (AUTO) 0.9 /CMM (0.1-1.30); MONOCYTES % (AUTO) 15.5 % (2.0-12.0); NEUTROPHILS # (AUTO) 3.1 /CMM (1.8-8.9); NEUTROPHILS % (AUTO) 55.9 % (43.0-81.0); PLATELET COUNT (AUTO) 88 /CMM (150-450); RDW COEFFICIENT OF VARIATION 13.6 (11.5-15.0); RED BLOOD CELL COUNT(AUTO) 2.93 MIL/uL (4.0-5.2); WHITE BLOOD COUNT (AUTO) 5.6 K/uL (4.3-11.0)
[2017-05-20] MEDS: BLOOD SUGAR DIAGNOSTIC 1 EACH STRIP IN SCH ×2 (07:59→12:42)
--- NOTE | 2017-05-20 08:00 | NUR ---
RN NOTES: PT RECEIVED IN STABLE CONDITION, EASILY AROUSAL. ON 2LPM O2 VIA NC. NO BREATHING DIFFICULTY NOTED. IV SITE INTACT. RIGHT CHEST WALL CATHETER INTACT. DRESSING DRY & INTACT. SAFETY MEASURES OBSERVED. WILL CONTINUE TO MONITOR.
[2017-05-20 08:10] LABS: CALCIUM, SERUM 8.9 mg/dL (8.5-10.1); CARBON DIOXIDE 29 mmol/L (21-32); CHLORIDE 108 mmol/L (98-107); CREATININE 4.4 mg/dL (0.6-1.3); GLUCOSE 126 mg/dL (74-106); MAGNESIUM 2.2 mg/dL (1.8-2.4); PHOSPHORUS 3.1 mg/dL (2.5-4.9); POTASSIUM 4.6 mmol/L (3.5-5.1); SODIUM SERUM 145 mmol/L (136-145); UREA NITROGEN, BLOOD 30 mg/dL (7-18)
[2017-05-20] MEDS ORDERED: CARV6.252 PO (09:34)
[2017-05-20] MEDS ORDERED: CLON0.3P TD (09:34)
[2017-05-20] MEDS ORDERED: CYAN500T4 PO (09:34)
[2017-05-20] MEDS: SEVELAMER CARBONATE 0.8 GM POWD.PACK GT SCH ×2 (09:42→12:43)
[2017-05-20] MEDS: LACTULOSE 10 G/15 ML UDC (PYXIS) PO SCH ×2 (09:42→12:43)
[2017-05-20] MEDS: CYANOCOBALAMIN 500 MCG TABLET PO SCH (09:43)
[2017-05-20] MEDS: CARVEDILOL 6.25 MG TABLET PO SCH (09:43)
[2017-05-20] MEDS: hydrALAZINE HCL 50 MG TABLET PO SCH ×2 (09:43→12:43)
[2017-05-20] MEDS: CLOTRIMAZOLE 1% 15 GM TUBE TP SCH (09:44)
[2017-05-20] MEDS: Z GUARD REMEDY 2 OZ OINT TP SCH (09:44)
[2017-05-20] MEDS: NITROGLYCERIN 30 GM TUBE TP SCH (09:44)
[2017-05-20 10:23] LABS: BAND % (MANUAL) 1 % (0.0-5.0); EOSINOPHILS % (MANUAL) 1 % (0-4); LYMPHOCYTES % (MANUAL) 32 % (16-48); MONOCYTES % (MANUAL) 13 % (0-11.0); NEUTROPHILS % (MANUAL) 53 (42-76)
[2017-05-20] MEDS ORDERED: IV NS 0.9% 500 ML IV ONE (12:00)
[2017-05-20] MEDS: INSULIN REGULAR, HUMAN 100 UNIT/ML 3 ML VIAL SQ PRN (12:45)
--- NOTE | 2017-05-20 13:00 | NUR ---
RN NOTES: AT 1130 NOTED LOW BLOOD PRESSURE 84/42. DR. ONEILL AWARE & BOLUS IV NS 500ML GIVEN ORDERED. RECHECKED BLOOD PRESSURE DOCUMENTED IN FLOW SHEET. POST BOLUS ADMINISTRATION BP 112/53.
--- NOTE | 2017-05-20 15:24 | NUR ---
RN NOTES: PATIENT DISCHARGE TO [facility] IN STABLE CONDITION, WITH STABLE VITAL SIGNS, BP 112/53, HR 70. NO S/S OF PAIN & DISCOMFORT. ON 2LPM O2 VIA NASAL CANNULA. BREATHING PATTERN REGULAR & UNLABORED. IV CATHETER REMOVED, APPLIED PRESSURE DRESSING. HD CATHETER INTACT ON RIGHT CHEST WALL. REPORT GIVEN TO BIANCA CARABALLO. SPOKE TO HER ABOUT FLU VACCINE WELL. BIANCA RN SAID THAT THEY HAVE TO CHECK RECORDS, IF NOT THAN WILL ADMINISTER IN THE FACILITY. SKIN PICTURE TAKEN & PLACED IN THE CHART. SPOKE WITH [employer]RIE [employer]AND DAUGHTER FOR DISCHARGE TO SNF.
[2017-05-20] MEDS ORDERED: LEVETIRACETAM SOL (5 ML) 100 MG/ML UDC PO SCH (17:00)
== END 2017-05-20 15:26 | DRG 871 ==
LOC: ER 06:10 → TELE-TD 08:25 → TELE1 05-12 10:24 → MEDSG1 05-14 10:50 → TELE1 05-16 16:29
PROVIDERS: ADMIT Internal Medicine; ATTEND Internal Medicine
PROC: 5A1D70Z Performance of Urinary Filtration, Intermittent, Less than 6 Hours Per Day (ICD-10-PCS; principal; 2017-05-10)
DX: A41.9 Sepsis, unspecified organism (principal); N18.6 End stage renal disease; J96.01 Acute respiratory failure with hypoxia; J69.0 Pneumonitis due to inhalation of food and vomit; G92 Toxic encephalopathy; E87.2 Acidosis; I13.2 Hypertensive heart and chronic kidney disease with heart failure and with stage 5 chronic kidney disease, or end stage renal disease; E46 Unspecified protein-calorie malnutrition; E11.22 Type 2 diabetes mellitus with diabetic chronic kidney disease; D69.6 Thrombocytopenia, unspecified; C90.00 Multiple myeloma not having achieved remission; N39.0 Urinary tract infection, site not specified; I50.32 Chronic diastolic (congestive) heart failure; R13.10 Dysphagia, unspecified; K72.90 Hepatic failure, unspecified without coma; I48.91 Unspecified atrial fibrillation; D63.8 Anemia in other chronic diseases classified elsewhere; F03.90 Unspecified dementia, unspecified severity, without behavioral disturbance, psychotic disturbance, mood disturbance, and anxiety; G40.909 Epilepsy, unspecified, not intractable, without status epilepticus; Z99.2 Dependence on renal dialysis; Z86.73 Personal history of transient ischemic attack (TIA), and cerebral infarction without residual deficits; Z86.711 Personal history of pulmonary embolism; Z79.899 Other long term (current) drug therapy; Z79.01 Long term (current) use of anticoagulants; E78.5 Hyperlipidemia, unspecified; Z79.4 Long term (current) use of insulin; I70.0 Atherosclerosis of aorta; I11.0 Hypertensive heart disease with heart failure; R23.4 Changes in skin texture; R65.20 Severe sepsis without septic shock; B95.2 Enterococcus as the cause of diseases classified elsewhere; Z98.890 Other specified postprocedural states; D50.9 Iron deficiency anemia, unspecified; E53.8 Deficiency of other specified B group vitamins; K59.00 Constipation, unspecified
CPT/HCPCS: 31720; 36415; 36600; 70450-TC; 71010-TC; 73130-TC; 76856-TC; 80048-TC; 80061-TC; 80076-TC; 80202-TC; 81000-TC; 82040-TC; 82140-TC; 82272-TC; 82746; 82803-TC; 82962-TC; 83540-TC; 83605-TC; 83735-TC; 84100-TC; 84439-TC; 84443-TC; 84484-TC; 85025-TC; 85730-TC; 86140-TC; 86431-TC; 87040-TC; 87081-TC; 87086-TC; 87186-TC; 87400; 90935-TC; 92611-TC; 93307-TC; A4216; A4606; A6402; J0360; J0696; J1644; J1815; J1953; J2185; J2543; J3370; J3490; J7030; J7040; J7042; J7050; J7060; Z7610